=== PATIENT | female | born 1970 | race Caucasian/White ===

== ENCOUNTER 2023-08-17 18:16 | Emergency (ER) | payer OTHER, SELFPAY ==
[2023-08-17 18:19] VITALS: BP 170/102; PULSE 83; RESP 16; TEMP 36.4; O2SAT 100
--- NOTE | 2023-08-17 19:53 | ED.GENADULT ---
HPI - General Adult General Chief complaint: Unspecified Stated complaint: R. breast pain radiates into the back Time Seen by Provider: 08/17/23 19:38 History of Present Illness HPI narrative: Patient is a 52-year-old female who presents to the emergency department this evening complaining of right-sided breast pain extending to her right thoracic back region. Patient states that the pain started approximately 3 days ago and has been persistent. Patient states that it gets so bad that it has been providing her from sleep. She went to [facility] earlier today and had a full workup done including an ultrasound of her right breast, EKG, blood work and a CT of her chest which all returned back negative. Patient admits that she does have breast implants and she has had them for the past 20 years without any issues. No recent trauma to the region. Denies any fevers or chills at home. She is here for pain control and a 2nd opinion. Related Data Allergies Allergy/AdvReac Type Severity Reaction Status Date / Time No Known Allergies Allergy Unknown Verified 08/17/23 18:22 Review of Systems Review of Systems: All systems are reviewed and are negative unless stated otherwise in the HPI. Exam Narrative: General: Alert, awake, afebrile, in no acute distress. HEENT: PERRL, no rhinorrhea, no post nasal drip, oropharynx clear. Cardiovascular: Regular rate and rhythm, no murmurs, rubs or gallops, no peripheral edema. Breast: Tenderness palpation over the right breast, no mass palpated, exam performed with the presence of female nurse earth science technician Grace. Respiratory: Clear to auscultation bilaterally, no tachypnea, no wheezing, no rhonchi, no rubs, no respiratory distress. Abdomen: Soft, nontender, nondistended, no rebound, no guarding, no peritoneal signs. Musculoskeletal: No joint swelling or deformity, normal muscle tone. Skin: No rashes or petechia, no signs of infection. Neurological: Alert and oriented to person, place, and time. Follows all commands. No focal deficits, speech is clear and fluent. Course Vital Signs Vital signs: Vital Signs Temperature 97.6 F 08/17/23 18:19 Pulse Rate 83 08/17/23 18:19 Respiratory Rate 16 08/17/23 18:19 Blood Pressure 170/102 H 08/17/23 18:19 Pulse Oximetry 100 08/17/23 18:19 Temperature 97.6 F 08/17/23 18:19 Pulse Rate 82 08/17/23 20:34 Respiratory Rate 15 08/17/23 20:34 Blood Pressure 162/98 H 08/17/23 20:34 Pulse Oximetry 100 08/17/23 20:34 Medical Decision Making MDM Narrative Medical decision making narrative: The patient was evaluated by myself in the emergency department. History is obtained from patient who is an independent historian and physical exam was performed. External medical records were reviewed at this time. I did inform the patient that since she has had a full workup done at [facility] there is no using repeating everything specifically repeating a CT scan which would be unnecessary radiation and patient is agreeable. Patient was administered oral Raymond 7.5 mg- 325 mg for pain. She was informed that she will be provided a script for Raymond to use as needed for pain to be able to sleep until she can set up an outpatient mammogram. She was also informed that she will be provided with an OBGYN to follow up with. Patient did admit that she has a family history of breast cancer but never got any genetic testing.. Differential diagnosis considerations include breast implant leak versus breast mass. Comorbidities impacting this visit include none. I have evaluated and discussed social determinants of health with the patient that could potentially impact subsequent diagnosis and treatment plans. On repeat assessment of the patient, reevaluation revealed that the patient is doing well and is in no acute distress. Patient symptoms have improved since she arrived to our emergency department. Repeat vital signs were all reviewed and noted to be
[2023-08-17] MEDS: HYDROcodone/acetaminophen (*CRX) 7.5-325 MG TABLET 1 TAB PO (19:57)
[2023-08-17 20:34] VITALS: BP 162/98; PULSE 82; RESP 15; O2SAT 100
== END 2023-08-17 20:40 | disposition home or self-care (01) ==
PROVIDERS: Emergency Provider Emergency Medicine; PCP Family Medicine
DX: N64.4 Mastodynia (principal)
CPT/HCPCS: 99283; A9270

== ENCOUNTER 2024-02-12 11:17 | Outpatient (CLI) | payer OTHER, SELFPAY ==
--- NOTE | ~2024-02-12 | MM_ITS ---
EXAMINATION TYPE: MM scrn jennifer implant BI w tomasz COMPARISON: NONE REASON FOR STUDY: Baseline TECHNIQUE: Bilateral mediolateral oblique and craniocaudal views were obtained digitally with 3-D ma mmogram (digital breast tomosynthesis) with CAD. Computer-aided detection was utilized in evaluation of this examination. Implant displaced views were also performed BREAST PARENCHYMAL COMPOSITION:Not Dense. There are scattered areas of fibroglandular density. FINDINGS: Retropectoral saline implants detected bilaterally. No discrete mass, architectural distortion, significant asymmetry or suspicious microcalcifications. Punctate calcifications within the retroareolar position of the left breast, benign in appearance. Ad ditional punctate calcifications within the right breast, dermal in origin and also benign in appeara nce. IMPRESSION: No mammographic or sonographic evidence to suggest the presence of malignancy BI-RADS CATEGORY: 2: Benign findings. RECOMMENDATION: Yearly mammography is recommended. Reviewed, dictated and finalized at location A. TAX
== END 2024-02-12 11:18 | disposition home or self-care (01) ==
PROVIDERS: PCP Family Medicine; Visit Provider Family Medicine
DX: Z12.31 Encounter for screening mammogram for malignant neoplasm of breast (principal)
CPT/HCPCS: 77063; 77067

== ENCOUNTER 2024-03-10 13:54 | Outpatient (CLI) | payer OTHER, SELFPAY ==
--- NOTE | ~2024-03-10 | CT_ITS ---
CT Scan of the Chest without Contrast: Clinical Indication: Lung cancer screening, nicotine dependence Technique: Contiguous sections were acquired throughout the chest without intravenous contrast. Dose reduction technique was used on this scan by utilizing automated exposure control and iterative recon struction technique. The dose-length product (DLP) was 222.18 mGy-cm. Findings: There is no evidence of any significant mediastinal, hilar or axillary lymphadenopathy. The mediastin al soft tissues appear normal. There is no evidence of pleural or pericardial effusion. The lungs are clear, aside from calcified lingular granuloma. Images through the upper abdomen reveal diffuse hepatic steatosis. Impression: Lung RADS 2: Benign appearance. 12 month follow-up screening CT advised. Reviewed, dictated and finalized at location . D MIXER TENDER Impression: Lung RADS 2: Benign appearance. 12 month follow-up screening CT advised.
== END 2024-03-10 13:55 | disposition home or self-care (01) ==
LOC: ANHIMG 14:05
PROVIDERS: PCP Family Medicine; Visit Provider Nurse Practitioner
DX: Z12.2 Encounter for screening for malignant neoplasm of respiratory organs (principal); Z87.891 Personal history of nicotine dependence
CPT/HCPCS: 71271

== ENCOUNTER 2024-04-09 14:40 | Outpatient (CLI) | payer OTHER, MEDICAID, SELFPAY ==
--- NOTE | ~2024-04-09 | XR_ITS ---
EXAMINATION: XR wrist LT 2V DATE: 04/09/2024 17:07 INDICATION: Left wrist pain. TECHNIQUE: 2 views of left wrist were obtained. COMPARISON: None. FINDINGS: Alignment is normal. No fracture. Joint spaces are normal. IMPRESSION: 1. Normal left wrist. Reviewed, dictated and finalized at location A. HT TEST ENGINEER IMPRESSION: 1. Normal left wrist.
--- NOTE | ~2024-04-09 | MR_ITS ---
EXAMINATION: MR hand RT wo/w con DATE: 04/09/2024 17:04 INDICATION: Right hand pain and swelling. TECHNIQUE: Magnetic resonance imaging (MRI) of the right hand was performed without and with 18 mL Mu ltiHance intravenous contrast. COMPARISON: Right wrist radiographs 04/09/2024 FINDINGS: Alignment is normal. No fracture. There is mild osteoarthritis of triscaphe joint, first ca rpometacarpal joint, and fifth proximal interphalangeal joint. The flexor and extensor tendons are no rmal. There is no tenosynovitis. IMPRESSION: 1. Mild polyarticular osteoarthritis. Reviewed, dictated and finalized at location A. RATION TAILOR
--- NOTE | ~2024-04-09 | XR_ITS ---
EXAMINATION: XR wrist RT 2V DATE: 04/09/2024 17:07 INDICATION: Right wrist pain. TECHNIQUE: 2 views of right wrist were obtained. COMPARISON: None. FINDINGS: Alignment is normal. No fracture. There is mild osteoarthritis of first carpometacarpal uriel nt. IMPRESSION: 1. Mild osteoarthritis of first carpometacarpal joint. Reviewed, dictated and finalized at location A. ERCIAL REAL ESTATE ASSOCIATE
--- NOTE | ~2024-04-09 | MR_ITS ---
EXAMINATION: MR hand LT wo/w con DATE: 04/09/2024 17:04 INDICATION: Left hand pain and swelling. TECHNIQUE: Magnetic resonance imaging (MRI) of the left hand was performed without and with 17 mL Mul tiHance intravenous contrast. COMPARISON: Left wrist radiographs 04/09/2024 FINDINGS: Alignment is normal. No fracture. Joint spaces are normal. The flexor and extensor tendons are normal. There is no synovitis. IMPRESSION: 1. Normal left hand. Reviewed, dictated and finalized at location A. STANT FOOTBALL COACH IMPRESSION: 1. Normal left hand.
--- OUTSIDE RECORDS SUMMARY | 2024-04-09 14:50 | XMS_ITS | Patient Health Record ---
Author Organization [facility] Address [address] [place] [address] Care Team Providers Care Jewelry Bearing Maker Name Role Phone Noelle Walsh Primary Care Provider [phone] Renaldo Tran Unavailable [phone] Mark Caldwell Unavailable [phone] Allergies No Known Allergies Reason For Referral Reason Colonoscopy Diagnosis 1 Encounter for screen ing for malignant neoplasm of colon (Z12.11) Referral Organization [facility], [facility] Referring Provider First Name Mark Referring Provider Last Name Paulette Referring Provider Speciality Internal M edicine Referred Provider Specialty Gastroentero logy General Notes Referral sent to [facility]. Letter to patient. Clinical Notes [facility], [address] [address], ph. [phone], fax: [phone] Referral Priority Routine Referral Appointment Date 02/05/2024 Medications Medication SIG (Take, Route, Frequency, Duration) Notes Start Date End Date Status Famotidine 20 MG 1 tablet at bedtime as needed Orally Once a day for 30 day(s) 06/16/2022 Not-Taking Venlafaxine HCl 75 MG 1 tablet with food Orally Twice a day for 30 days Active Melatonin 5 MG 1 tablet in the evening Orally Once a day for 30 days Active hydrOXYzine HCl 25 MG 1 tablet Orally th ree times a day for 30 days 09/18/2023 Active Nicotine Gum 4mg 4 MG 1 piece up to ever y hour as needed for cravings Mouth/Throat up to 20 pieces per day for 28 days Not-Taking cloNIDine HCl 0.1 MG 1 tablet Orally twi ce a day for 30 days 11/10/2022 Not-Taking OLANZapine 10 MG 1 tablet bedtime Orally Once a day for 30 days 02/05/2024 Active PARoxetine HCl 30 MG 1 tablet in the morning Orally Once a day for 30 days Active QUEtiapine Fumarate 25 MG 1 tablet at be dtime Orally twice a day for 30 days 03/16/2023 Active cloNIDine HCl 0.1 MG 1 tablet Orally twi ce a day for 30 days 11/10/2022 Active Meloxicam 7.5 MG 1 tablet Orally Once a day for 30 days Not-Taking Percocet 7.5-325 MG 1 tablet as needed Orally every 6 hrs Not-Taking methylPREDNISolone 4 MG as directed Orally Not-Taking Gabapentin Not-Takin g HYDROCODONE Not-Taki ng Social History Tobacco Use: Social History Observation Description Date Details (start date - stop date) Current Smoker NA - NA Sex Assigned At : Social History Observation Description Sex Assigned At Female Tobacco Control (Standard) Question Answer Notes Tobacco use: Current every day smoker Additional Findings: Tobacco user Moderate cigar ette smoker (10-19 cigs/day) Problems Problem Type SNOMED Code ICD Code Onset Dates Problem Status W/U Status Risk Notes Problem Tobacco user (099783713) Nicotine dependence, unspecified, uncomplicated (F17.200) Active confirmed Problem Major depression (876197715) Major depression (F32.9) Active confirmed Problem Panic disorder with agoraphobia (66875372) Panic disorder with agoraphobia (F40.01) Active confirmed Problem Rheumatoid arthritis (29855650) Rheumatoid arthritis (M06.9) Active confirmed Problem Acid reflux (029047607) Acid reflux (K21.9) Active confirmed Problem Hyperlipidemia screening (350917000) Screening for hyperlipidemia (Z13.220) Active confirmed Problem Tobacco user (150165033) Nicotine dependence with current use (F17.200) Active confirmed Vital Signs Heart Rate 85 /min 01/01/2024 Respiratory Rate 16 /min 01/01/2024 Oximetry 98 % 01/01/2024 Blood pressure diastolic 86 mm Hg 01/01/2024 Height 67 in 01/01/2024 Blood pressure systolic 146 mm Hg 01/01/2024 Weight 200.4 lbs 01/01/2024 BMI 31.38 kg/m2 01/01/2024 Encounters Encounter Location Date Provider Diagnosis [address] [address] 04/13/2023 Noelle Walsh [address] [address] 05/18/2023 Noelle Walsh Colon cancer screening Z12.[address] [address] 08/08/2023 Arif Habib Major depression F32.[address] [address] 11/27/2023 Mark Caldwell Encounter for screening for malignant neoplasm of colon Z12.11 and Encounter for screening mammogram for breast cancer Z12.[address] [address] 02/05/2024 Mark Caldwell Encounter for screening for malignant neoplasm of colon Z12.11 and Encounter for screening mammogram for breast cancer Z12.[address] [address] 01/01/2024 Arif Habib Nicotine dependence, unspecified, uncomplicated F17.200 and Major depression F32.[address] [address] 05/25/2023 Arif Habib Major depression F32.[address] [address] 07/17/2023 Arif Habib Major depression F32.[address] [address] 09/18/2023 Arif Habib Major depression F32.[address] [address] 11/27/2023 Arif Habib Nicotine dependence, unspecified, uncomplicated F17.200 and Major depression F32.[address] [address] 02/05/2024 Arif Habib Nicotine dependence, unspecified, uncomplicated F17.200 and Major depression F32.[address] [place] [address] 03/11/2024 Arif Habib Nicotine dependence, unspecified, uncomplicated F17.200 and Major depression F32.9 Assessments Encounter Date Diagnosis (ICD Code) Assessment Notes Treatment Notes Treatment Clinical Notes Section Notes 05/18/2023 Colon cancer screening (ICD-10 - Z12.11) 05/25/2023 Major depression (ICD-10 - F32.9) 07/17/2023 Major depression (ICD-10 - F32.9) 08/08/2023 Major depression (ICD-10 - F32.9) 09/18/2023 Major depression (ICD-10 - F32.9) 11/27/2023 Encounter for screening for malignant neoplasm of colon (ICD-10 - Z12.11) Patient Educated with: Fecal Occult Blood Test.pdf (Fecal Occult Blood Test.pdf) 11/27/2023 Encounter for screening mammogram for breast cancer (ICD-10 - Z12.31) Patient Educated with: Mammogram - About this test.pdf (Mammogram - About this test.pdf) Patient Educated with: Learning about Breast Cancer Screenings.pdf (Learning about Breast Cancer Screenings.pdf) 11/27/2023 Nicotine dependence, unspecified, uncomplicated (ICD-10 - F17.200) 02/05/2024 Encounter for screening for malignant neoplasm of colon (ICD-10 - Z12.11) 02/05/2024 Encounter for screening mammogram for breast cancer (ICD-10 - Z12.31) Patient Educated with: Mammogram - About this test.pdf (Mammogram - About this test.pdf) Patient Educated with: Learning about Breast Cancer Screenings.pdf (Learning about Breast Cancer Screenings.pdf) 02/05/2024 Nicotine dependence, unspecified, uncomplicated (ICD-10 - F17.200) 01/01/2024 Nicotine dependence, unspecified, uncomplicated (ICD-10 - F17.200) 03/11/2024 Nicotine dependence, unspecified, uncomplicated (ICD-10 - F17.200) 03/11/2024 Major depression (ICD-10 - F32.9) Continue Paxil 30 mg daily & Effexor 75 mg BID. Pt lately has been taking 75 mg one a day but advised to take BID. Side effects discussed. Increase Zyprexa 5 mg HS as mood stabilizer. Coping skills discussed. 01/01/2024 Major depression (ICD-10 - F32.9) She is still taking Effexor. Increase Paxil 30 mg daily. Side effects discussed. Add Melatonin 5mg HS for sleep Coping skills discussed. 02/05/2024 Major depression (ICD-10 - F32.9) Continue Paxil 30 mg daily & Effexor Side effects discussed. Add Zyprexa 5 mg HS as mood stabilizer. Coping skills discussed. 11/27/2023 Major depression (ICD-10 - F32.9) she already stopped Zoloft few weeks ago on her own and also stopped Trazodone few months ago on her own. She is still taking Effexor. Add Paxil as pt is requesting because it heps her sister. Side effects discussed. 05/25/2023 Other side effects discussed. continue current treatment. Supportive treatment provided 07/17/2023 Other increase Zoloft 200 mg daily, increase Trazodone 100 mg HS. Continue Effexor 75 mg BID. Side effects discussed. Advised to see me in person next time. 09/18/2023 Other Side effects discussed. Coping skills discussed. Add Hydroxyzine 25 mg TID for anxiety. Continue other treatment. Supportive treatment provided Plan Of Treatment Future Test Test Name Order Date Mammogram Breast - Bilateral Screening with ABUS, diagnostic mammogram/ultrasound, and/or biopsy as clinically indicated 12/04/2023 Mammogram Breast - Bilateral Screening with ABUS, diagnostic mammogram/ultrasound, and/or biopsy as clinically indicated 02/12/2024 Insurance Providers Payer Name Payer Address Payer Phone Subscriber Number Group Number Insured Name Patient Relationship to Insured Coverage Start Date Coverage End Date [facility] [address] [place] [phone] [id number] Joseph Michelle Self - patient is the insured 3 3 [facility] Claims Department [address] [place] [address] [phone] [id number] Michelle Ruiz Self - patient is the insured 3 4 [facility] [address] [place] [address] [id number] Michelle Ruiz Self - patient is the insured 4 MEDICAID [address] [facility] [place] [address] [id number] Michelle Ruiz Self - patient is the insured 4 [facility] Claims Department [address] [place] [address] [phone] [id number] Michelle Ruiz Self - patient is the insured 3 4 Medical (General) History Medical History History ICD Code Arthritis Surgical History Surgery Date(Month/Year) Gastric Bypass 2002 Breast Augmentation 2006 Csection 2007 Right shoulder surgery 2009 Hospitalization History Reason Date(Month/Year) [facility] for gall bladder pain August 2022
--- OUTSIDE RECORDS SUMMARY | 2024-04-09 14:50 | XMS_ITS ---
Author Organization [facility] Address [address] [place] [address] Care Team Providers Care Client Experience Manager Name Role Phone Noelle Walsh Primary Care Provider Habib, Arif Unavailable [phone] Allergies No Known Allergies REASON FOR VISIT 1 month f/u [phone], CSSR Interpretation and Follow UP Plan, Dep screening Intervention Medications Medication SIG (Take, Route, Frequency, Duration) Notes Start Date End Date Status methylPREDNISolone 4 MG as directed Orally Not-Taking cloNIDine HCl 0.1 MG 1 tablet Orally twi ce a day for 30 days 11/10/2022 Not-Taking QUEtiapine Fumarate 25 MG 1 tablet at be dtime Orally twice a day for 30 days 03/16/2023 Active cloNIDine HCl 0.1 MG 1 tablet Orally twi ce a day for 30 days 11/10/2022 Active Meloxicam 7.5 MG 1 tablet Orally Once a day for 30 days Not-Taking Gabapentin Not-Takin g HYDROCODONE Not-Taki ng Famotidine 20 MG 1 tablet at bedtime as needed Orally Once a day for 30 day(s) 06/16/2022 Not-Taking OLANZapine 5 MG 1 tablet bedtime Orally Once a day for 30 days 02/05/2024 Active Percocet 7.5-325 MG 1 tablet as needed Orally every 6 hrs Active Melatonin 5 MG 1 tablet in the evening Orally Once a day for 30 days Active PARoxetine HCl 30 MG 1 tablet in the morning Orally Once a day for 30 days Active Venlafaxine HCl 75 MG 1 tablet with food Orally Twice a day for 30 days Active hydrOXYzine HCl 25 MG 1 tablet Orally th ree times a day for 30 days 09/18/2023 Active Nicotine Gum 4mg 4 MG 1 piece up to ever y hour as needed for cravings Mouth/Throat up to 20 pieces per day for 28 days Not-Taking Social History Tobacco Use: Social History Observation Description Date Details (start date - stop date) Current Smoker NA - NA Sex Assigned At : Social History Observation Description Sex Assigned At Female Tobacco Control (Standard) Question Answer Notes Tobacco use: Current smoker How often do you smoke cigarettes? Every day How many cigarettes a day do you smoke? 6-10 Encounters Encounter Location Date Provider Diagnosis [address] [place] [address] 02/05/2024 Arif Habib Nicotine dependence, unspecified, uncomplicated F17.200 and Major depression F32.9 Assessments Encounter Date Diagnosis (ICD Code) Assessment Notes Treatment Notes Treatment Clinical Notes Section Notes 02/05/2024 Nicotine dependence, unspecified, uncomplicated (ICD-10 - F17.200) 02/05/2024 Major depression (ICD-10 - F32.9) Continue Paxil 30 mg daily & Effexor Side effects discussed. Add Zyprexa 5 mg HS as mood stabilizer. Coping skills discussed. Plan Of Treatment Medication Medication Name Sig Start Date Stop Date Notes OLANZapine 5 MG 1 tablet bedtime Ora lly Once a day for 30 days 02/05/2024 Melatonin 5 MG 1 tablet in the even ing Orally Once a day for 30 days PARoxetine HCl 30 MG 1 tablet in the mor emilia Orally Once a day for 30 days Venlafaxine HCl 75 MG 1 tablet with food Orally Twice a day for 30 days Next Appt Details Follow Up: 4 Weeks, Reason: Progress Notes * Michelle RUIZDOB:1970 ( 53 yo F)Acc No.[id number]:02/05/2024 Patient: Michelle HERNÁNDEZ Provider: Alber Tran :1970 A ge:53 Y S ex:Female Date:02/05/2024 Address:[address] [place], [place] [id number] Pcp:Noelle Walsh Subjective: * Chief Complaints: * 1 month f/u [phone] Interpretation and Follow UP PlanDep screening Intervention * HPI: D epression Screening: PHQ-9 L ittle interest or pleasure in doing things N early every day, F eeling down, depressed, or hopeless N early every day, T rouble falling or staying asleep, or sleeping too much S everal days, F eeling tired or having little energy N early every day, P oor appetite or overeating M ore than half the days, F eeling bad about yourself or that you are a failure, or have let yourself or your family down N early every day, T rouble concentrating on things, such as reading the newspaper or watching television N early every day, M oving or speaking so slowly that other people could have noticed; or the opposite, being so fidgety or restless that you have been moving around a lot more than usual?Several days, T houghts that you would be better off or of hurting yourself in some way Not at all, T otal Score 1 9, I nterpretation M oderately Severe Depression.?Intervention D epression Screening Findings P ositive, F ollow-Up for Depression?No Referral necessary, patient involved in behavioral health treatment .. Phone session Pt reports having mood swings. Sister suggested her to atke Zyprexa. Sister takes Zyprexa 30 mg and it did wonders for her as per patient. Pt reports still has anxiety. Stays home all the time. Has anxiety attack. S ister responded to Paxil in past. Pt reports still has depression. Denies wish. Denies SI/HI. Sleep is not good. Appetite is alright. Denies hallucination or delusions. Denies manic or hypo manic symptoms. Denies alcohol or illicit drug use. MSE: Alert, Ox4, mood is alright. She is calm , cooperative, pleasant today. D enies SI/HI. Denies halluciantion or delusions. Denies manic or hypo manic symptoms. Insight & judgement limited. Speech is normal. P reventative Health and Wellness follow-up: Action Plans for Clinical Quality Measures: B reast Cancer Screening: D iscussed need for breast cancer screening. Order placed., C ervical Cancer Screening: D iscussed need for cervical cancer screening. Referred to [facility] for same day scheduling., C olorectal Cancer Screening: D iscussed need for colorectal cancer screening. Referral placed for colonoscopy.. . C SSRS Interpretation and Follow Up Plan: CSSRS Interpretation and Follow Up Plan. CSSRS Interpretation and Follow Up Plan C SSRS Screen documented using SF Y es, M oderate or High risk requires selection of a follow up plan C SSRS No/Low: intervention not needed at this time. S creening: [place] Suicide Severity Rating Scale (LF) D o you want to initiate with S creener form, 1 . Wish to be : Have you wished you were or wished you could go to sleep and not wake up? N o, 2 . Suicidal Thoughts: Have you actually had any thoughts of killing yourself? N o, 6 . Suicide Behaviour: Have you ever done anything,started to do anything, or prepared to end your life? N o, I nterpretation: L ow Risk. * Medical History: * Surgical History: G astric Bypass 2003Breast Augmentation 2006Csection 2007Right shoulder surgery 2008 * Hospitalization/Major Diagno stic Procedure: G [facility] for gall bladder pain August 2022 * Family History: F ather: . M other: . 1 brother(s) , 2 sister(s) - healthy. 1 son(s) - healthy. . Mom had cancer and arthritis. Dad had cancer, high blood pressure and arthritis. Sister of breast cnncer. * Social History: P [facility] Social History: L iving Arrangement L iving Arrangement: I ndependent Living Lives with fiance and son., I s this a supportive environment? Y es. A lcohol Use A lcohol Use Frequency: Never. I llicit Substance Usage I llicit Substance Usage: N o. E mployment Status?Employment Status: U nemployed. T obacco Use: T obacco Control (Standard) T obacco use: C urrent smoker, H ow often do you smoke cigarettes? E very day, H ow many cigarettes a day do you smoke? 6 -10. * Medications: T akingPercocet 7.5-325 MG Tablet 1 tablet as needed Orally every 6 hrs cloNIDine HCl 0.1 MG Tablet 1 tablet Orally twice a day QUEtiapine Fumarate 25 MG Tablet 1 tablet at bedtime Orally twice a day hydrOXYzine HCl 25 MG Tablet 1 tablet Orally three times a day Venlafaxine HCl 75 MG Tablet 1 tablet with food Orally Twice a day PARoxetine HCl 30 MG Tablet 1 tablet in the morning Orally Once a day Melatonin 5 MG Tablet 1 tablet in the evening Orally Once a day Taking Percocet 7.5-325 MG Tablet 1 tablet as needed Orally every 6 hrs Taking cloNIDine HCl 0.1 MG Tablet 1 tablet Orally twice a day Taking QUEtiapine Fumarate 25 MG Tablet 1 tablet at bedtime Orally twice a day Taking hydrOXYzine HCl 25 MG Tablet 1 tablet Orally three times a day Taking Venlafaxine HCl 75 MG Tablet 1 tablet with food Orally Twice a day Taking PARoxetine HCl 30 MG Tablet 1 tablet in the morning Orally Once a day Taking Melatonin 5 MG Tablet 1 tablet in the evening Orally Once a day Not- TakingFamotidine 20 MG Tablet 1 tablet at bedtime as needed Orally Once a day HYDROCODONE Gabapentin methylPREDNISolone 4 MG Tablet Therapy Pack as directed Orally Meloxicam 7.5 MG Tablet 1 tablet Orally Once a day cloNIDine HCl 0.1 MG Tablet 1 tablet Orally twice a day Nicotine Gum 4mg 4 MG Gum 1 piece up to every hour as needed for cravings Mouth/Throat up to 20 pieces per day Not-Taking Famotidine 20 MG Tablet 1 tablet at bedtime as needed Orally Once a day Not-Taking HYDROCODONE Not-Taking Gabapentin Not-Taking methylPREDNISolone 4 MG Tablet Therapy Pack as directed Orally Not- Taking Meloxicam 7.5 MG Tablet 1 tablet Orally Once a day Not-Taking cloNIDine HCl 0.1 MG Tablet 1 tablet Orally twice a day Not-Taking Nicotine Gum 4mg 4 MG Gum 1 piece up to every hour as needed for cravings Mouth/Throat up to 20 pieces per day * Allergies: N .K.D.A.no[Allergies Verified] Objective: * Vitals: I nitials: sw, LMP: pratibha, Pain scale:0. Assessment: * Assessment: 1. N icotine dependence, unspecified, uncomplicated - F17.200 2 . M ajor depression - F32.9 Plan: * Treatment: 2. M ajor depression Refill Venlafaxine HCl Tablet, 75 MG, 1 tablet with food, Orally, Twice a day, 30 days, 60, Refills 0. Clinical Notes: Continue Paxil 30 mg daily & Effexor Side effects discussed. Add Zyprexa 5 mg HS as mood stabilizer. Coping skills discussed. * Recommended Wellness and Pre vention Guidelines: * S kay [place] ast Done N ext Due A ction Taken N ONCOMPLIANT B reast cancer screening - 1 04/07/2023 - N ONCOMPLIANT C ervical cancer screening - 1 04/07/2023 - N ONCOMPLIANT C olorectal cancer screening - 1 04/07/2023 - * Procedure Codes: 9 9406 BEHAV CHNG SMOKING 3-10 MIN * Preventive Medicine: Counseling: S MOKING: P atient counselled on the dangers of tobacco use and urged to quit. . . * Follow Up: 4 Weeks * * FITTER AMMONIA Sign off status: Completed true * Provider: Alber Tran Date: 1 04/07/2023 Generated for Velasquez faust/Jen/Leonard on: 0 04/09/2024 02:50 PM PIPE FITTER AMMONIA History and Physical Notes * HPI (History of Present Illness) Category Sub-Category Detail Notes Category Not es Depression Screening PHQ-9 Little inte rest or pleasure in doing things: Nearly every day Phone session Pt reports having mood swings. Sister suggested her to atke Zyprexa. Sister takes Zyprexa 30 mg and it did wonders for her as per patient. Pt reports still has anxiety. Stays home all the time. Has anxiety attack. Sister responded to Paxil in past. Pt reports still has depression. Denies wish. Denies SI/HI. Sleep is not good. Appetite is alright. Denies hallucination or delusions. Denies manic or hypo manic symptoms. Denies alcohol or illicit drug use. MSE: Alert, Ox4, mood is alright. She is calm , cooperative, pleasant today. Denies SI/HI. Denies halluciantion or delusions. Denies manic or hypo manic symptoms. Insight & judgement limited. Speech is normal. Feeling down, depressed, or hopeless: Ne pancho every day Trouble falling or staying asleep, or sl eeping too much: Several days Feeling tired or having little energy: N early every day Poor appetite or overeating: More than h chevy the days Feeling bad about yourself o r that you are a failure, or have let yourself or your family down: Nearly every day Trouble concentrating on thi ngs, such as reading the newspaper or watching television: Nearly every day Moving or speaking so slowly that other people could have noticed; or the opposite, being so fidgety or restless that you have been moving around a lot more than usual: Several days Thoughts that you would be b shira off or of hurting yourself in some way: Not at all Total Score: 19 Interpretation: Moderately Severe Depres farhan Intervention Depression Screening Findings: P ositive Follow-Up for Depression: No Referral necessary, patient involved in behavioral health treatment . Screening [place] Suicide Sev erity Rating Scale (LF) Do you want to initiate with: Screener form 1. Wish to be : Have you wished you were or wished you could go to sleep and not wake up?: No 2. Suicidal Thoughts: Have you actually had any thoughts of killing yourself?: No 6. Suicide Behavior Question: Have you ever done anything,started to do anything, or prepared to end your life?: No Interpretation:: Low Risk Do Not Use CSSRS Interpretation and Follow Up Plan CSSRS Interpretation and Follow Up Plan CSSRS Screen documented using SF: Yes Moderate or High risk requir es selection of a follow up plan: CSSRS No/Low: intervention not needed at this time Preventative Health and Wellness follow-up Action Plans for Clinical Quality Measures: Breast Cancer Screening:: Discussed need for breast cancer screening. Order placed. . Cervical Cancer Screening:: Discussed need for cervical cancer screening. Referred to [facility] for same day scheduling. Colorectal Cancer Screening: : Discussed need for colorectal cancer screening. Referral placed for colonoscopy.
--- OUTSIDE RECORDS SUMMARY | 2024-04-09 14:51 | XMS_ITS ---
Author Organization [facility] Address [address] [place] [address] Care Team Providers Care Ship Pilot Name Role Phone Noelle Walsh Primary Care Provider Habib, Arif Unavailable [phone] Allergies No Known Allergies REASON FOR VISIT 4 WK FU, Dep screening Intervention, CSSR Interpretation and Follow UP Plan Medications Medication SIG (Take, Route, Frequency, Duration) Notes Start Date End Date Status Famotidine 20 MG 1 tablet at bedtime as needed Orally Once a day for 30 day(s) 06/16/2022 Not-Taking Melatonin 5 MG 1 tablet in the evening Orally Once a day for 30 days Active hydrOXYzine HCl 25 MG 1 tablet Orally th ree times a day for 30 days 09/18/2023 Active PARoxetine HCl 30 MG 1 tablet in the morning Orally Once a day for 30 days Active QUEtiapine Fumarate 25 MG 1 tablet at be dtime Orally twice a day for 30 days 03/16/2023 Active Venlafaxine HCl 75 MG 1 tablet with food Orally Twice a day for 30 days Active Nicotine Gum 4mg 4 MG 1 piece up to ever y hour as needed for cravings Mouth/Throat up to 20 pieces per day for 28 days Not-Taking cloNIDine HCl 0.1 MG 1 tablet Orally twi ce a day for 30 days 11/10/2022 Not-Taking cloNIDine HCl 0.1 MG 1 tablet Orally twi ce a day for 30 days 11/10/2022 Active Percocet 7.5-325 MG 1 tablet as needed Orally every 6 hrs Not-Taking OLANZapine 10 MG 1 tablet bedtime Orally Once a day for 30 days 02/05/2024 Active Meloxicam 7.5 MG 1 tablet Orally Once a day for 30 days Not-Taking methylPREDNISolone 4 MG as directed Orally [...] user Moderate cigar ette smoker (10-19 cigs/day) Encounters Encounter Location Date Provider Diagnosis [address] [address] 03/11/2024 Renaldo Habib Nicotine dependence, unspecified, uncomplicated F17.200 and Major depression F32.9 Assessments Encounter Date Diagnosis (ICD Code) Assessment Notes Treatment Notes Treatment Clinical Notes Section Notes 03/11/2024 Nicotine dependence, unspecified, uncomplicated (ICD-10 - [...] Name Sig Start Date Stop Date Notes PARoxetine HCl 30 MG 1 tablet in the mor emilia Orally Once a day for 30 days Venlafaxine HCl 75 MG 1 tablet with food Orally Twice a day for 30 days OLANZapine 10 MG 1 tablet bedtime Ora lly Once a day for 30 days 02/05/2024 Next Appt Details Follow Up: 4 Weeks, Reason: Progress Notes * Michelle RUIZDOB:1970 ( 53 yo F)Acc No.[id number]:03/11/2024 Patient: Sindy NATACHAMichelle Provider: Alber Tran :1970 A ge:53 Y S ex:Female Date:03/11/2024 Address:[address] [place], [place] [id number] Pcp:Noelle Walsh Subjective: * Chief Complaints: * 4 WK FUDep screening InterventionCSSR Interpretation and Follow UP Plan * HPI: D epression Screening: PHQ-9 L ittle interest or pleasure in doing things N early every day, F eeling down, depressed, or hopeless N early every day, T rouble falling or staying asleep, or sleeping too much N early every day, F eeling tired or having little energy N early every day, P oor appetite or overeating N early every day, F eeling bad about yourself or that you are a failure, or have let yourself or your family down N early every day, T rouble concentrating on things, such as reading the newspaper or watching television?Nearly every day, M oving or speaking so slowly that other people could have noticed; or the opposite, being so fidgety or restless that you have been moving around a lot more than usual N ot at all, T houghts that you would be better off or of hurting yourself in some way N ot at all, T otal Score 2 1, I nterpretation S evere Depression. I ntervention?Depression Screening Findings P ositive, F ollow-Up for Depression N o Referral necessary, patient involved in behavioral health treatment .. Phone session Pt reports still having depression . PHQ-9 is 21 today. Reports having mood swings. She gets irritable easy. She stays home a lot due to cold weather. Taking Nyquil for cold symptoms. Denies wish. Denies SI/HI. Zyprexa is helping her sleep better. Sister suggested her to atke Zyprexa. Sister takes Zyprexa 30 mg and it did wonders for her as per patient. Pt reports still has anxiety. Has anxiety attack. S tino responded to Paxil in past. Appetite is alright. Denies hallucination or delusions. Denies manic or hypo manic symptoms. Denies alcohol or illicit drug use. MSE: Alert, Ox4, mood is alright. She is calm , cooperative. Denies SI/HI. Denies halluciantion or delusions. Denies manic or hypo manic symptoms. Insight & judgement alright. Speech is normal. C SSRS Interpretation and Follow Up Plan: CSSRS Interpretation and Follow Up Plan C SSRS Screen documented using SF Y es, R isk Disposition from SF L ow - No Follow Up Plan Required, F ollow Up Plan N o Follow Up Plan required at this time.. S creening: [place] Suicide Severity Rating Scale (LF) D o [...] N o, I nterpretation: L ow Risk. P reventative Health and Wellness follow-up: Action Plans for Clinical Quality Measures: B reast Cancer Screening: N ot addressed during this visit. See notes for details., C ervical Cancer Screening: N ot addressed during this visit. See notes for details., C olorectal Cancer Screening: Not addressed during this visit. See notes for details.. . * Medical History: * Surgical History: G [...] blood pressure and arthritis. Sister of breast cancer. * Social History: P rimary Social History: L iving Arrangement L iving Arrangement: I ndependent Living Lives with fiance and son., I s this a supportive environment? Y es. A lcohol Use A lcohol Use Frequency: Never. I llicit Substance Usage I llicit Substance Usage: N o. E mployment Status?Employment Status: U nemployed. T obacco Use: T obacco Control (Standard) T obacco use: C urrent every day smoker, A dditional Findings: Tobacco user M oderate cigarette smoker (10-19 cigs/day). * Medications: T akingcloNIDine HCl 0.1 MG Tablet 1 tablet Orally [...] in the evening Orally Once a day OLANZapine 5 MG Tablet 1 tablet bedtime Orally Once a day Taking cloNIDine HCl 0.1 MG Tablet 1 [...] the evening Orally Once a day Taking OLANZapine 5 MG Tablet 1 tablet bedtime Orally Once a day Not-TakingPercocet 7.5-325 MG Tablet 1 tablet as needed Orally every 6 hrs Famotidine 20 MG Tablet 1 tablet at [...] up to 20 pieces per day Not-Taking Percocet 7.5-325 MG Tablet 1 tablet as needed Orally every 6 hrs Not-Taking Famotidine 20 MG Tablet 1 tablet at bedtime as needed Orally Once a day Not-Taking HYDROCODONE Not-Taking Gabapentin Not-Taking methylPREDNISolone 4 MG Tablet Therapy Pack as directed Orally Not-Taking Meloxicam 7.5 MG Tablet 1 tablet Orally Once a day Not-Taking cloNIDine HCl 0.1 MG Tablet 1 tablet Orally twice a day Not-Taking Nicotine Gum 4mg 4 MG Gum 1 piece up to every hour as needed for cravings Mouth/Throat up to 20 pieces per day * Allergies: N .K.D.A.no[Allergies Verified] Objective: * Vitals: I nitials: cv, LMP: pratibha, Pain scale:0. Assessment: * Assessment: [...] Wellness and Pre vention Guidelines: * S tatus A lert L ast Done N ext Due A ction Taken N ONCOMPLIANT A lcohol use screening - 0 03/11/2024 - N ONCOMPLIANT B reast cancer screening - 0 03/11/2024 - N ONCOMPLIANT C ervical cancer screening - 0 03/11/2024 - N ONCOMPLIANT C holesterol control (genl pop) 0 06/19/2022 0 03/11/2024 - N ONCOMPLIANT C olorectal cancer screening - 0 03/11/2024 - N ONCOMPLIANT D epression followup 0 03/11/2024 0 03/11/2024 - N ONCOMPLIANT I nfluenza vaccine (over 50) - 0 03/11/2024 - * Procedure Codes: 9 9406 BEHAV CHNG SMOKING 3-10 MIN * Preventive Medicine: Counseling: S MOKING: P atient counselled on the dangers of tobacco use and urged to quit. . . * Follow Up: 4 Weeks * * IAC NURSE Sign off status: Completed true * Provider: Alber Tran Date: 0 03/11/2024 Generated for Velasquez faust/Jen/Leonard on: 0 04/09/2024 02:50 PM CARDIAC NURSE History and Physical Notes * HPI (History of Present Illness) Category Sub-Category Detail Notes Category Not es Depression Screening PHQ-9 Little inte rest or pleasure in doing things: Nearly every day Phone session Pt reports still having depression . PHQ-9 is 21 today. Reports having mood swings. She gets irritable easy. She stays home a lot due to cold weather. Taking Nyquil for cold symptoms. Denies wish. Denies SI/HI. Zyprexa is helping her sleep better. Sister suggested her to atke Zyprexa. Sister takes Zyprexa 30 mg and it did wonders for her as per patient. Pt reports still has anxiety. Has anxiety attack. Sister responded to Paxil in past. Appetite is alright. Denies hallucination or delusions. Denies manic or hypo manic symptoms. Denies alcohol or illicit drug use. MSE: Alert, Ox4, mood is alright. She is calm , cooperative. Denies SI/HI. Denies halluciantion or delusions. Denies manic or hypo manic symptoms. Insight & judgement alright. Speech is normal. Feeling down, depressed, or hopeless: Ne pancho every day Trouble falling or staying asleep, or sl eeping too much: Nearly every day Feeling tired or having little energy: N early every day Poor appetite or overeating: Nearly ever y day Feeling bad about yourself o r that [...] moving around a lot more than usual: Not at all Thoughts that you would be b shira off or of hurting yourself in some way: Not at all Total Score: 21 Interpretation: Severe Depression Intervention Depression Screening Findings: P ositive Follow-Up for Depression: No Referral necessary, patient involved in behavioral health treatment . Screening [place] Suicide Sev erity Rating Scale (LF) Do [...] end your life?: No Interpretation:: Low Risk Preventative Health and Wellness follow-up Action Plans for Clinical Quality Measures: Breast Cancer Screening:: Not addressed during this visit. See notes for details. . Cervical Cancer Screening:: Not addressed during this visit. See notes for details. Colorectal Cancer Screening: : Not addressed during this visit. See notes for details. CSSRS Interpretation and Follow Up Plan CSSRS Interpretation and Follow Up Plan CSSRS Screen documented using SF: Yes Risk Disposition from SF: Low - No Follo w Up Plan Required Follow Up Plan: No Follow Up Plan requir ed at this time.
--- OUTSIDE RECORDS SUMMARY | 2024-04-09 14:51 | XMS_ITS ---
Author Organization [facility] Address [address] [place] [address] Care Team Providers Care Passenger Barge Master Name Role Phone Noelle Walsh Primary Care Provider [phone] Renaldo Tran Unavailable [phone] Mark Caldwell Unavailable [phone] Reason For Referral Reason Colonoscopy Diagnosis 1 Encounter for screen ing for malignant neoplasm of colon (Z12.11) Referral Organization [facility] Referring Provider First Name Mark Referring Provider Last Name Paulette Referring Provider Speciality Internal M edicine Referred Provider Specialty Gastroentero logy General Notes Referral sent to [facility]. Letter to patient. Clinical Notes [facility], [address] [address], ph. [phone], fax: [phone] Referral Priority Routine Referral Appointment Date 02/05/2024 REASON FOR VISIT UDS Measures Social History Sex Assigned At : Social History Observation Description Sex Assigned At Female Encounters Encounter Location Date Provider Diagnosis [address] [place] [address] 02/05/2024 Mark Caldwell Encounter for screening for malignant neoplasm of colon Z12.11 and Encounter for screening mammogram for breast cancer Z12.31 Assessments Encounter Date Diagnosis (ICD Code) Assessment Notes Treatment Notes Treatment Clinical Notes Section Notes 02/05/2024 Encounter for screening for malignant neoplasm of colon (ICD-10 - Z12.11) 02/05/2024 Encounter for screening mammogram for breast cancer (ICD-10 - Z12.31) Patient Educated with: Mammogram - About this test.pdf (Mammogram - About this test.pdf) Patient Educated with: Learning about Breast Cancer Screenings.pdf (Learning about Breast Cancer Screenings.pdf ) Plan Of Treatment Treatment Notes Assessment Notes Encounter for screening mamm ogram for breast cancer Patient Educated with: Mammogram - About this test.pdf (Mammogram - About this test.pdf) Patient Educated with: Learning about Breast Cancer Screenings.pdf (Learning about Breast Cancer Screenings.pdf) Future Test Test Name Order Date Mammogram Breast - Bilateral Screening with ABUS, diagnostic mammogram/ultrasound, and/or biopsy as clinically indicated 02/12/2024 Referrals Referral Date Details 02/05/2024 02/05/2024, Colonosc opy Progress Notes * Michelle RUIZDOB:1970 ( 53 yo F)Acc No.[id number]:02/05/2024 Patient: Michelle HERNÁNDEZ :1970 A ge:53 Y S ex:Female Address:[address] [place] [address], [id number] Subjective: * Chief Complaints: * U DS Measures * Medical History: * Surgical History: * Hospitalization/Major Diagno stic Procedure: * Medications: Objective: * Vitals: * Physical Examination: Assessment: * Assessment: 1. E ncounter for screening for malignant neoplasm of colon - Z12.11 2 . E ncounter for screening mammogram for breast cancer - Z12.31 Plan: * Treatment: 2. E ncounter for screening mammogram for breast cancer I maging: Mammogram Breast - Bilateral Screening with ABUS, diagnostic mammogram/ultrasound, and/or biopsy as clinically indicated (Ordered for 02/12/2024) Notes: Patient Educated with: Mammogram - About this test.pdf (Mammogram - About this test.pdf) Patient Educated with: Learning about Breast Cancer Screenings.pdf (Learning about Breast Cancer Screenings.pdf) * Procedure Codes: * true * Date: Generated for Printi govind/Jen/eTransmitting on: 0 04/09/2024 02:50 PM SCUBA DIVING INSTRUCTOR Consultation Request Notes Referral Date Referring Provider Referred Provider Not es 02/05/2024 Mark Caldwell , Colonoscopy
[2024-04-09 18:57] LABS: Erythrocyte Sedimentation Rate 16 mm/hr (0-20)
[2024-04-09 19:02] LABS: CRP < 0.5 mg/dL (<1.0); Creatine Kinase 39 U/L (30-135)
[2024-04-09 19:10] LABS: Complement C3 158 mg/dL (88-165)
[2024-04-11 04:43] LABS: SM Antibody <1.0 NEG AI (<1.0 NEG); SM/RNP Antibody <1.0 NEG AI (<1.0 NEG); SS-A <1.0 NEG AI (<1.0 NEG); SS-B <1.0 NEG AI (<1.0 NEG)
[2024-04-11 18:53] LABS: G-6-PD, RBC 18.7 U/g Hgb (7.0-20.5)
== END 2024-04-09 14:41 | disposition home or self-care (01) ==
PROVIDERS: PCP Family Medicine
DX: M25.532 Pain in left wrist (principal); M35.3 Polymyalgia rheumatica; M19.041 Primary osteoarthritis, right hand; M19.031 Primary osteoarthritis, right wrist
CPT/HCPCS: 36415; 73100; 73220; 82550; 82955; 84182; 85652; 86038; 86039; 86140; 86160; 86225; 86235; A9577

== ENCOUNTER 2024-08-29 11:42 | Outpatient (CLI) | payer OTHER, MEDICAID, SELFPAY ==
--- NOTE | ~2024-08-29 | CT_ITS ---
Non-contrast Head CT History: Headache Technique: Axial non-contrast imaging of the brain was performed. Dose reduction technique was used on this scan by utilizing automated exposure control and iterative reconstruction technique. The dose -length product (DLP) was 599.57 mGy-cm. Findings: There is no evidence of intracranial hemorrhage, mass lesion, or acute infarct. Brain par enchyma appears normal. The ventricles and subarachnoid spaces are normal in size. The calvarium ap pears normal. The visualized paranasal sinuses and mastoid air cells are clear. Impression: No significant abnormality seen. Reviewed, dictated and finalized at location . Impression: No significant abnormality seen.
== END 2024-08-29 11:43 | disposition home or self-care (01) ==
LOC: MICIMG 11:43
PROVIDERS: PCP Nurse Practitioner; Visit Provider Nurse Practitioner
DX: G44.209 Tension-type headache, unspecified, not intractable (principal)
CPT/HCPCS: 70450

== ENCOUNTER 2024-11-02 11:57 | Emergency (ER) | payer OTHER, MEDICAID, SELFPAY ==
--- NOTE | ~2024-11-02 | CT_ITS ---
Michelle Rogel EXAMINATION: CT abdomen pelvis w con COMPARISON: None HISTORY: epigastric abd pain; hx pancreatitis TECHNIQUE: Axial images were obtained through the abdomen, pelvis post administration of IV contrast. Oral contrast was also administered. Coronal reconstruction images were obtained from the axial views. CT scan performed using dose optimization techniques including the following automated exposure control; adjustment of mA and/or kV; use of iterative reconstruction technique. Automatic exposure control was used to reduce radiation dose. Permanent radiation dose record is archived to PACS. FINDINGS: CT abdomen: LUNG BASES: The lung bases are clear. The visualized portions of the heart and pericardium are unremarkable. LIVER: Severe hepatic steatosis. The portal vein is patent. There is intrahepatic biliary duct dilatation with dilatation of the CBD measuring 2 cm tapering abruptly distally. SPLEEN: Unremarkable. KIDNEYS: Right Kidney: Unremarkable. No calculi. No hydronephrosis. Left Kidney: Unremarkable. No calculi. No hydronephrosis ADRENAL GLANDS: Unremarkable. PANCREAS: The pancreas is abnormal with dilatation of the pancreatic duct maximally measuring 5 mm with abnormal density in the pancreatic head with a focus of calcification possibly in the distal duct but incompletely characterized. GALLBLADDER/BILIARY: Post cholecystectomy. STOMACH AND ESOPHAGUS: Postsurgical changes in the stomach. BOWEL/MESENTERY: Moderate fecal content. No colitis or diverticulitis. Appendix not identified. Mesentery otherwise normal. ADENOPATHY/RETROPERITONEUM: No lymphadenopathy. AORTA/VASCULATURE: Partially imaged bilateral breast implants. FREE FLUID OR FREE AIR: No free fluid.. CT pelvis: SOLID ORGANS/REPRODUCTIVE: Post hysterectomy. No adnexal mass. BLADDER: Within normal limits. OSSEOUS STRUCTURES: No acute osseous abnormality.No suspicious lesions. OVERLYING SOFT TISSUES: Postsurgical changes abdominal wall.There is thickening of the skin overlying the pelvis, correlate for underlying cellulitis. IMPRESSION: Pancreatic head mass suspected. Contrast-enhanced MRI is recommended Reviewed, dictated and finalized at location A.
[2024-11-02 12:03] VITALS: BP 154/86; PULSE 105; RESP 16; TEMP 36.4; O2SAT 96
--- NOTE | 2024-11-02 12:07 | ECG_ITS ---
Test Date: 2024-11-02 12:10:54 Measurements Intervals Dairy Rate: 94 P: 47 NJ: 168 QRS: -24 QRSD: 85 T: 34 QT: 356 QTc: 447 Interpretive Statements SINUS RHYTHM MINIMAL VOLTAGE CRITERIA FOR LVH, CONSIDER NORMAL VARIANT [MEETS CRITERIA IN ONE OF: R(aVL), S(V1), R(V5), R(V5/V6)+S(V1)] ANTEROSEPTAL MYOCARDIAL INFARCTION , OF INDETERMINATE AGE [40+ ms Q WAVE IN V1-V4] ABNORMAL ECG No previous ECG available for comparison Electronically Signed On 11-02-2024 12:34:30 CDT by Kyle Duff M.D.
[2024-11-02 12:27] LABS: BEDSIDEPREGUCG Negative (Negative)
[2024-11-02 12:33] LABS: Hematocrit 44.1 % (37.0-47.0); Hemoglobin 14.2 g/dL (12.0-15.0); Immature Granulocyte Percent A 0.3 % (0-0.5); Lymphocytes Absolute Auto 2.30 K/mm3 (0.9-3.2); Mean Corpuscular HGB Conc 32.2 g/dl (32-36); Mean Corpuscular Hemoglobin 30.4 pg (26-34); Mean Corpuscular Volume 94.4 fl (80-100); Nucleated Red Blood Cells Absolute Auto 0.000 K/mm3 (0.0-0.012); Nucleated Red Blood Cells Perc 0.0 % (0.0-0.2); Platelet Count Result 390 k/mm3 (150-375); Red Blood Count 4.67 M/mm3 (4.2-5.4); White Blood Count 12.9 K/mm3 (4.5-10.0)
[2024-11-02 12:38] LABS: Add Urine Microscopic? YES; Appearance Urine Clear (Clear); Glucose Urine UA Negative (Negative); Leukocyte Esterase Ur Trace LEU/UL (Negative); Nitrate Urine Negative (Negative); Non Pathogenic Casts 0-2; Specific Grav Ur 1.032 (1.001-1.035)
[2024-11-02 12:45] LABS: Alanine Aminotransferase 25 U/L (6-35); Albumin Level 3.8 g/dL (3.5-5.1); Alkaline Phosphatase 118 U/L (38-126); Anion Gap 8 mmol/L (4-12); Aspartate Amino Transferase 28 U/L (14-36); Bilirubin,Total 0.8 mg/dL (0.2-1.3); Blood Urea Nitrogen 16 mg/dL (7-17); Calcium 9.1 mg/dL (8.4-10.2); Carbon Dioxide 22 mmol/L (22-30); Chloride 107 mmol/L (98-107); Estimated CRCL calculation 105 ml/min; Estimated Glomerular Filt Rate > 60; Glucose 120 mg/dL (65-110); Lipase 420 U/L (23-300); Potassium 3.7 mmol/L (3.4-5.0); Sodium 137 mmol/L (137-145); Total Protein 7.5 g/dL (6.3-8.2)
--- NOTE | 2024-11-02 13:15 | ED.ABDPAIN ---
HPI - Abdominal Pain General Chief Complaint: Abdominal Pain Stated Complaint: abd pain/N/V-Hx Pancreatitis Time Seen by Provider: 11/02/24 12:50 Source: patient and family () Mode of arrival: ambulatory Limitations: no limitations History of Present Illness HPI narrative: Patient presents right epigastric abdominal pain, nausea, and vomiting. Pain radiates to her back wrapping around her left upper quadrant, like a half belt. States she has a history of pancreatitis and this feels the same. Describes burning pain. LBM was the day before yesterday. Denies chest pain or shortness of breath. WINNIE was yesterday. No sick contacts. No diarrhea. States she is a former heavy drinker but now only has it 1x/year. Status post hysterectomy and gastric bypass. Does not know if she has had a cholecystectomy. Denies dysuria, urgency, frequency, or hematuria. No fevers. Also asking about a bump she feels on the right lateral aspect of her tongue but believes it might have just been some mild trauma while brushing her teeth. Related Data Allergies Allergy/AdvReac Type Severity Reaction Status Date / Time No Known Allergies Allergy Unknown Verified 11/02/24 11:58 [facility] Past Medical History Medical History History of pancreatitis Surgical History Surgical History History of cholecystectomy Based on postsurgical changes on CT 11/02 (patient was not certain about history) H/O gastric bypass History of hysterectomy Social History Social History (Updated 11/03/24 @ 23:15 by Josselin Moss MD) Social History: Alcohol intake: former Alcohol use details: previously heavy consumption; now 1x/year Substance use type: marijuana Living arrangements: with family Additional living arrangements comments: Exam Narrative: GENERAL: Well-appearing, well-nourished, and in no acute distress. HEAD: Normocephalic, atraumatic. EYES: Non injected, non icteric ENT: Nares clear, no rhinorrhea or epistaxis. Gross auditory acuity intact. Moist mucous membranes. Essentially Linear raised portion of right lateral tongue, no active bleeding. Not firm and no palpable masses. NECK: Supple. No meningismus. CHEST: Speaking in full sentences. No respiratory distress. HEART: Tachycardic rate and rhythm. . ABDOMEN: Soft, nondistended. No tenderness to palpation throughout. No rigidity or guarding. Not peritoneal EXTREMITIES: Normal range of motion. No lower extremity edema. SKIN: Warm, dry, no rash. NEURO: No focal deficits. Alert and oriented. Answering questions. Following commands. Normal speech without aphasia or dysarthria. Tongue protrudes mildline without deviation. No fasciculations. PSYCH: Congruent mood and affect. Course Vital Signs Vital signs: Vital Signs Temperature 97.6 F 11/02/24 12:03 Pulse Rate 105 H 11/02/24 12:03 Respiratory Rate 16 11/02/24 12:03 Blood Pressure 154/86 H 11/02/24 12:03 Pulse Oximetry 96 11/02/24 12:03 Oxygen Delivery Room Air 11/02/24 12:03 Temperature 97.6 F 11/02/24 12:03 Pulse Rate 72 11/02/24 17:47 Respiratory Rate 16 11/02/24 17:47 Blood Pressure 116/72 11/02/24 17:47 Pulse Oximetry 99 11/02/24 17:47 Oxygen Delivery Room Air 11/02/24 12:03 MDM - Abdominal Pain MDM Narrative Medical decision making narrative: Patient presents with epigastric abdominal pain. History of pancreatitis and states this feels similar. In the emergency department she is afebrile with vital signs notable for mild hypertension and mild tachycardia. Lipase mildly elevated. Not 3x the upper limit of normal to suggest pancreatitis and benign abdominal exam but will obtain CT imaging nevertheless. Leukocytosis and mild thrombocytosis. Urinalysis with mild ketones but otherwise without signs of infection. We discussed the findings her CT scan when patient is reassessed at approximately 2:55 p.m. she states she has not vomited since being in the emergency department and her nausea is improved but hte pain persists. Will give 1 dose Dilaudid. She does endorse using marijuana daily/near daily, from the dispensary. Patient complaining of nausea per nurse at approximately 3:30 p.m.. Haldol and diphenhydramine ordered. Patient is reassessed. Patient on multiple times endorses concerned that when she gets home she will be unable to swallow but what she means by this is she is concerned that her nausea and vomiting will prohibit her from being able to swallow/keep PO down. However, she successfully PO challenges. I have discussed with the patient the need to follow-up as noted on the discharge instructions, or return to the Emergency Department immediately if the pain worsens, develops fever, persistent and uncontrolled vomiting, or for any new symptoms or concerns. Provided Rx for ODT Zofran. Otherwise stable for DC. Vital signs within normal limits. Differential Diagnosis Differential diagnosis: Likely abdominal pain, constipation, diverticulitis, endometriosis, gastroenteritis, pancreatitis and other (cannabinoid hyperemesis syndrome; gastritis) Lab Data Attestation: I reviewed the patient's lab results. Lab results narrative: CMP normal 11/02/24 12:17 11/02/24 12:17 Labs: Lab Results 11/02/24 11/02/24 11/02/24 Range/Units 12:17 12:22 12:25 WBC 12.9 H (4.5-10.0) K/mm3 RBC 4.67 (4.2-5.4) M/mm3 Hgb 14.2 (12.0-15.0) g/dL Hct 44.1 (37.0-47.0) % MCV 94.4 (80-100) fl MCH 30.4 (26-34) pg MCHC 32.2 (32-36) g/dl RDW 14.9 H (11.5-14.5) % Plt Count 390 H (150-375) k/mm3 MPV 10.6 H (7.4-10.4) fl Immature Gran % (Auto) 0.3 (0-0.5) % Neut % (Auto) 70.9 (45.5-73.1) % Lymph % (Auto) 17.8 L (18.3-44.2) % Kinney % (Auto) 6.0 (2.6-8.5) % Eos % (Auto) 4.6 H (0-4.4) % Baso % (Auto) 0.4 (0.2-1.2) % Lymph # (Auto) 2.30 (0.9-3.2) K/mm3 Kinney # (Auto) 0.8 H (0.1-0.6) K/mm3 Eos # (Auto) 0.6 H (0-0.3) K/mm3 Baso # (Auto) 0.1 (0.0-0.1) K/mm3 Abs Immat Gran (auto) 0.04 H (0.00-0.031) K/mm3 Absolute Neuts (auto) 9.2 H (1.3-6.7) K/mm3 Absolute Nucleated RBC 0.000 (0.0-0.012) K/mm3 Nucleated RBC % 0.0 (0.0-0.2) % Sodium 137 (137-145) mmol/L Potassium 3.7 (3.4-5.0) mmol/L Chloride 107 (98-107) mmol/L Carbon Dioxide 22 (22-30) mmol/L Anion Gap 8 (4-12) mmol/L BUN 16 (7-17) mg/dL Creatinine 0.59 L (0.7-1.0) mg/dL Estim Creat Clear Calc 105 ml/min Estimated GFR > 60 (59 - ) Glucose 120 H (65-110) mg/dL Calcium 9.1 (8.4-10.2) mg/dL Total Bilirubin 0.8 (0.2-1.3) mg/dL AST 28 (14-36) U/L ALT 25 (6-35) U/L Alkaline Phosphatase 118 (38-126) U/L Troponin I < 0.012 (0.000-0.034) ng/mL Total Protein 7.5 (6.3-8.2) g/dL Albumin 3.8 (3.5-5.1) g/dL Lipase 420 H (23-300) U/L Urine Color Yellow (Yellow) Urine Appearance Clear (Clear) Urine pH 5.5 (5.0-9.0) Ur Specific Gustine 1.032 (1.001-1.035) Urine Protein Trace (Negative) mg/dL Urine Glucose (UA) Negative (Negative) mg/dL Urine Ketones 1+ H (Negative) mg/dL Ur Blood (Man) Negative (Negative) Urine Nitrate Negative (Negative) Urine Bilirubin Negative (Negative) Urine Urobilinogen 2.0 H (<2.0) mg/dL Leukocyte Esterase Rfl Trace H (Negative) MADDIE/UL Urine RBC 0-2 (0-2) /hpf Urine WBC 0-5 (0-3) /hpf Ur Squamous Epith Cells Occasional (Few) /hpf Urine Bacteria Rare /hpf Urine Casts 0-2 POC Urine HCG, Qual Negative (Negative) Influenza A (RT-PCR) (Negative) Influenza B (RT-PCR) (Negative) SARS-CoV-2 RNA (RT-PCR) (Negative) 11/02/24 Range/Units 13:29 WBC (4.5-10.0) K/mm3 RBC (4.2-5.4) M/mm3 Hgb (12.0-15.0) g/dL Hct (37.0-47.0) % MCV (80-100) fl MCH (26-34) pg MCHC (32-36) g/dl RDW (11.5-14.5) % Plt Count (150-375) k/mm3 MPV (7.4-10.4) fl Immature Gran % (Auto) (0-0.5) % Neut % (Auto) (45.5-73.1) % Lymph % (Auto) (18.3-44.2) % Kinney % (Auto) (2.6-8.5) % Eos % (Auto) (0-4.4) % Baso % (Auto) (0.2-1.2) % Lymph # (Auto) (0.9-3.2) K/mm3 Kinney # (Auto) (0.1-0.6) K/mm3 Eos # (Auto) (0-0.3) K/mm3 Baso # (Auto) (0.0-0.1) K/mm3 Abs Immat Gran (auto) (0.00-0.031) K/mm3 Absolute Neuts (auto) (1.3-6.7) K/mm3 Absolute Nucleated RBC (0.0-0.012) K/mm3 Nucleated RBC % (0.0-0.2) % Sodium (137-145) mmol/L Potassium (3.4-5.0) mmol/L Chloride (98-107) mmol/L Carbon Dioxide (22-30) mmol/L Anion Gap (4-12) mmol/L BUN (7-17) mg/dL Creatinine (0.7-1.0) mg/dL Estim Creat Clear Calc ml/min Estimated GFR (59 - ) Glucose (65-110) mg/dL Calcium (8.4-10.2) mg/dL Total Bilirubin (0.2-1.3) mg/dL AST (14-36) U/L ALT (6-35) U/L Alkaline Phosphatase (38-126) U/L Troponin I (0.000-0.034) ng/mL Total Protein (6.3-8.2) g/dL Albumin (3.5-5.1) g/dL Lipase (23-300) U/L Urine Color (Yellow) Urine Appearance (Clear) Urine pH (5.0-9.0) Ur Specific Gustine (1.001-1.035) Urine Protein (Negative) mg/dL Urine Glucose (UA) (Negative) mg/dL Urine Ketones (Negative) mg/dL Ur Blood (Man) (Negative) Urine Nitrate (Negative) Urine Bilirubin (Negative) Urine Urobilinogen (<2.0) mg/dL Leukocyte Esterase Rfl (Negative) MADDIE/UL Urine RBC (0-2) /hpf Urine WBC (0-3) /hpf Ur Squamous Epith Cells (Few) /hpf Urine Bacteria /hpf Urine Casts POC Urine HCG, Qual (Negative) Influenza A (RT-PCR) Negative (Negative) Influenza B (RT-PCR) Negative (Negative) SARS-CoV-2 RNA (RT-PCR) Negative (Negative) Imaging Data Radiologist's impression: ITS Impressions Abdomen/Pelvis CT 11/02/24 14:27 IMPRESSION: Pancreatic head mass suspected. Contrast-enhanced MRI is recommended ECG Data EKG #1: Attestation: I personally reviewed and interpreted this ECG as follows: ECG completion date: 11/02/24 ECG completion time: 12:10 Interpretation: Normal sinus rhythm at a rate of 94 beats per minute. MN interval 168. QRS 85. QT/QTC 356/447. R-wave progression across the precordial leads. No T-wave inversions. Discharge Plan Discharge Clinical Impression: Epigastric abdominal pain, Leukocytosis, Mass of head of pancreas Instructions: Antibiotic Form, Epigastric Pain (ED) Additional Instructions: The oral disintegrating tablets (ODT) of Zofran/ondansetron can help suppress nausea and vomiting. They dissolve under your tongue or in your cheek so you don't have to swallow but they work on your stomach by entering your blood stream. This will help allow you to rest and maintain your hydration and take your other medications as prescribed. As we discussed, Pancreatic head mass suspected. Contrast-enhanced MRI is recommended. Your PCP can help arrange this. Please follow up with them by calling their office tomorrow. Return to the emergency department with any new or worsening symptoms; example develops fever, persistent and uncontrolled vomiting, etc. Patient Language: Bahraini Prescriptions: New ondansetron 4 mg tablet,disintegrating 4 mg PO Q8H PRN (Reason: nausea and vomiting) Qty: 10 0RF No Action hydrocodone-acetaminophen 5-325 mg tablet 1 tablet PO Q8H PRN (Reason: pain) Qty: 10 0RF Follow-up/Referrals: Inés,Michelle Peralta APRN [Primary Care Provider, Unknown] Stand Alone Forms: Work/School Release IP Time of Disposition: 17:32
[2024-11-02 13:52] LABS: Troponin I < 0.012 ng/mL (0.000-0.034)
[2024-11-02] MEDS: SODIUM CHLORIDE 0.9% IV 1,000 ML 999 ML IV CONT (13:55)
[2024-11-02] MEDS: FAMOTIDINE 20 MG/2 ML VIAL IV PUSH (13:56)
[2024-11-02] MEDS: ONDANSETRON INJ 4 MG/2 ML VIAL IV PUSH (13:56)
[2024-11-02] MEDS: MORPHINE SULFATE (*CRX) 4 MG/ML INJ IV PUSH (13:56)
--- NOTE | 2024-11-02 14:02 | PC.NURSE ---
Pt. to CT.
[2024-11-02 14:10] LABS: Influenza A QL RT-PCR Negative (Negative); Influenza B QL RT-PCR Negative (Negative); SARS-CoV-2 RNA PCR Negative (Negative)
[2024-11-02] MEDS: HYDROmorphone HCL INJ (*CRX) 1 MG/ML SYR 0.5 MG IV PUSH (15:28)
--- NOTE | 2024-11-02 15:32 | PC.NURSE ---
Pt. c/o continued nausea. Dr. Moss notified.
[2024-11-02] MEDS: HALOPERIDOL LACTATE 5 MG/ML VIAL 2.5 MG IV PUSH (15:45)
[2024-11-02 16:57] VITALS: BP 118/65; PULSE 93; RESP 16; O2SAT 99
[2024-11-02] MEDS: METOCLOPRAMIDE HCL INJ 10 MG/2 ML VIAL IV PUSH (16:57)
--- NOTE | 2024-11-02 17:02 | PC.NURSE ---
Pt. requesting an update. Dr. Moss notified.
[2024-11-02] MEDS: ACETAMINOPHEN 500 MG TABLET 1000 MG PO (17:23)
[2024-11-02] MEDS: KETOROLAC 15 MG/ML VIAL (*BKC) IV PUSH (17:24)
[2024-11-02 17:47] VITALS: BP 116/72; PULSE 72; RESP 16; O2SAT 99
== END 2024-11-02 17:49 | disposition home or self-care (01) ==
PROVIDERS: Emergency Medicine; Emergency Provider Student in an Organized Health Care Education/Training Program; PCP Nurse Practitioner
DX: R10.13 Epigastric pain (principal); D72.829 Elevated white blood cell count, unspecified; K86.9 Disease of pancreas, unspecified; Z20.822 Contact with and (suspected) exposure to COVID-19
CPT/HCPCS: 36415; 74177; 80053; 81001; 81025; 83690; 84484; 85025; 87636; 93005; 96361; 96374; 96375; 99284; A9270; J1171; J1200; J1630; J1885; J2270; J2405; J2765; J7030; Q9967

== ENCOUNTER 2024-11-07 17:31 | Inpatient (IN) | payer OTHER, MEDICAID, SELFPAY ==
--- NOTE | ~2024-11-07 | CT_ITS ---
EXAMINATION: CT abdomen pelvis w con DATE: 11/07/2024 20:28 INDICATION: Epigastric abdominal pain. Nausea and vomiting. TECHNIQUE: Computed tomography (CT) of the abdomen and pelvis was performed with 100 mL Omnipaque 350 intravenous contrast. Automated exposure control and iterative reconstruction technique were employed. The dose-length product was 1015.57 mGy-cm. COMPARISON: CT abdomen and pelvis 11/02/2024 FINDINGS: The visualized portions of the lung bases demonstrate mild atelectasis. No pleural effusion. The heart size is normal. No pericardial effusion. Breast implants are noted. There is diffuse hepatic steatosis. There is mild intrahepatic biliary duct dilatation. There are changes of cholecystecto my. The common duct is dilated to 13 mm, likely not clinically significant given the normal liver function tests. There is a calcification in the head of the pancreas, consistent with chronic pancreatitis. The pancreatic duct is mildly dilated. There is fat stranding around the pancreas, consistent with acute interstitial pancreatitis. There are changes of gastric bypass procedure. The spleen, adrenal glands, and kidneys are normal. The appendix is dilated to 12 mm without change. No surrounding fat stranding to suggest appendicitis. There are no pathologically enlarged lymph nodes. There is no free intraperitoneal fluid. There is mild thoracic and lumbar spondylosis. IMPRESSION: 1. Acute interstitial pancreatitis superimposed on chronic pancreatitis. 2. Diffuse hepatic steatosis. Reviewed, dictated and finalized at location E.
[2024-11-07 17:40] VITALS: BP 147/80; PULSE 88; RESP 16; TEMP 36.7; O2SAT 100
[2024-11-07 18:45] VITALS: BP 158/85; PULSE 80; RESP 19; O2SAT 98
[2024-11-07 18:58] LABS: Hematocrit 43.2 % (37.0-47.0); Hemoglobin 13.9 g/dL (12.0-15.0); Immature Granulocyte Percent A 0.3 % (0-0.5); Lymphocytes Absolute Auto 2.34 K/mm3 (0.9-3.2); Mean Corpuscular HGB Conc 32.2 g/dl (32-36); Mean Corpuscular Hemoglobin 30.2 pg (26-34); Mean Corpuscular Volume 93.9 fl (80-100); Nucleated Red Blood Cells Absolute Auto 0.000 K/mm3 (0.0-0.012); Nucleated Red Blood Cells Perc 0.0 % (0.0-0.2); Platelet Count Result 393 k/mm3 (150-375); Red Blood Count 4.60 M/mm3 (4.2-5.4); White Blood Count 8.9 K/mm3 (4.5-10.0)
[2024-11-07 19:00] VITALS: BP 121/86; PULSE 78; RESP 13; O2SAT 99
[2024-11-07 19:09] LABS: Alanine Aminotransferase 17 U/L (6-35); Albumin Level 3.8 g/dL (3.5-5.1); Alkaline Phosphatase 111 U/L (38-126); Anion Gap 5 mmol/L (4-12); Aspartate Amino Transferase 22 U/L (14-36); Bilirubin,Total 0.5 mg/dL (0.2-1.3); Blood Urea Nitrogen 17 mg/dL (7-17); Calcium 9.6 mg/dL (8.4-10.2); Carbon Dioxide 28 mmol/L (22-30); Chloride 107 mmol/L (98-107); Estimated CRCL calculation 96 ml/min; Estimated Glomerular Filt Rate > 60; Glucose 103 mg/dL (65-110); Lipase 128 U/L (23-300); Potassium 3.8 mmol/L (3.4-5.0); Sodium 140 mmol/L (137-145); Total Protein 7.8 g/dL (6.3-8.2)
--- NOTE | 2024-11-07 19:31 | ED.ABDPAIN ---
HPI - Abdominal Pain General Chief Complaint: Abdominal Pain <MIC Nicholson Last Filed: 11/08/24 01:01> Stated Complaint: pancreatitis <MIC Nicholson Last Filed: 11/08/24 01:01> Time Seen by Provider: 11/07/24 17:57 <MIC Nicholson Last Filed: 11/08/24 01:01> Source: patient <MIC Nicholson Last Filed: 11/08/24 01:01> Mode of arrival: ambulatory <MIC Nicholson Last Filed: 11/08/24 01:01> Limitations: no limitations <MIC Nicholson Last Filed: 11/08/24 01:01> History of Present Illness HPI narrative: Patient is a 53-year-old female who presents the ED with report of abdominal pain. Patient reports having pain throughout her epigastric abdominal region, radiating through to her back for the past 4-5 days. Was seen in the ED here on 11/[address] scan of the abdomen showed possible pancreatic mass at that time. Patient has history of pancreatitis and states symptoms feel similar. She reports persistent pain, nausea, vomiting since her ED visit. Was prescribed Zofran for home, but denies improvement. Has been unable to keep down food or drink. Denies fevers, chest pain, shortness breath, diarrhea, constipation. <MIC Nicholson Last Filed: 11/08/24 01:01> Related Data Home Medications: Home Medications ?Medication ?Instructions ?Recorded ?Confirmed ?Last Taken ?Type albuterol sulfate 90 mcg/actuation 1 inh inhalation Q4-6H PRN 11/08/24 11/08/24 Unknown History aerosol inhaler shortness of breath or wheezing amlodipine 5 mg tablet 5 mg PO DAILY 11/08/24 11/08/24 Unknown History cyclobenzaprine 10 mg tablet 10 mg PO HS PRN muscle spasm 11/08/24 11/08/24 Unknown History gabapentin 800 mg tablet 800 mg PO QID 11/08/24 11/08/24 Unknown History hydroxyzine HCl 25 mg tablet 25 mg PO HS PRN itching 11/08/24 11/08/24 Unknown History lisinopril 40 mg tablet 40 mg PO DAILY 11/08/24 11/08/24 Unknown History melatonin 5 mg tablet 5 mg PO HS 11/08/24 11/08/24 Unknown History olanzapine 20 mg tablet 10 mg PO BID 11/08/24 11/08/24 Unknown History oxycodone-acetaminophen 7.5 mg-325 1 tablet PO QID 11/08/24 11/08/24 Unknown History mg tablet paroxetine HCl 20 mg tablet 20 mg PO DAILY 11/08/24 11/08/24 Unknown History varenicline tartrate 1 mg tablet 1 mg PO DAILY 11/08/24 11/08/24 Unknown History venlafaxine 75 mg tablet 75 mg PO DAILY 11/08/24 11/08/24 Unknown History <Lenka Flores PA-C - Last Filed: 11/08/24 01:01> Allergies/Adverse Reactions: Allergies Allergy/AdvReac Type Severity Reaction Status Date / Time No Known Allergies Allergy Unknown Verified 11/08/24 02:19 <Lenka Flores PA-C - Last Filed: 11/08/24 01:01> Review of Systems Review of Systems: All systems reviewed & are unremarkable except as noted in HPI. <Lenka Flores PA-C - Last Filed: 11/08/24 01:01> All systems reviewed & are unremarkable except as noted in HPI and below <Lenka Flores PA-C - Last Filed: 11/08/24 01:01> PENDING SALE TO [facility] Past Medical History Medical History: Medical History History of pancreatitis <Lenka Flores PA-C - Last Filed: 11/08/24 01:01> Surgical History Surgical History: Surgical History History of cholecystectomy Based on postsurgical changes on CT 11/02 (patient was not certain about history) H/O gastric bypass History of hysterectomy <Lenka Flores PA-C - Last Filed: 11/08/24 01:01> Family History Family History: Family History (Updated 11/08/24 @ 02:52 by Ruben Collazo RN) Father Leukemia Mother Pancreatic cancer <Lenka Flores PA-C - Last Filed: 11/08/24 01:01> Social History Social History: Social History Social History: Smoking packs per day: 0.5 Smoking cigarettes per day: 10.0 Smoking status: Current every day smoker Tobacco type: cigarettes Alcohol intake: former Drinks per week: 35 Alcohol use details: previously heavy consumption; now 1x/year Substance use: never Substance use type: does not use Lack of Transportation: No Lack of Food: Never True Current Housing: I Have Housing Concerned About Future Housing: No Difficulty Paying Gas/Electric Bills: No Difficulty Paying for Meds: No Currently Unemployed: No Education: High School Diploma/GED Difficulty w/ Childcare or Family Care: No Living arrangements: with family Additional living arrangements comments: Spiritual care concerns: No <Lenka Flores PA-C - Last Filed: 11/08/24 01:01> Exam Narrative: GENERAL: Mildly uncomfortable appearing, obese with BMI of 30.4, non-toxic, in no acute distress. HEAD: Normocephalic, atraumatic. RESPIRATORY: Airway patent, respirations nonlabored. Clear to auscultation bilaterally, no rales, rhonchi, wheezing. CARDIOVASCULAR: Regular rate and rhythm without murmurs, rubs, or gallops. ABDOMINAL: Soft, mild diffuse tenderness some focal tenderness in epigastric region, nondistended. Normoactive BS. MUSCULOSKELETAL: Moves all extremities. No gross deformities. SKIN: Warm, dry, normal color. NEURO: A&O X3. Speech clear. Cranial nerves II-XII grossly intact. Steady gait. No ataxic movements. PSYCHIATRIC: Appropriate mood and affect. Normal interaction. <Lenka Flores PA-C - Last Filed: 11/08/24 01:01> Course MULTIGRAPH OPERATOR/PA Physician Supervision This visit was performed by both a physician and an APC; I performed all aspects of the medical decision making component of this evaluation as documented. <Carola Millard MD - Last Filed: 11/08/24 03:54> Vital Signs Vital signs: Vital Signs Temperature 98.0 F 11/07/24 17:40 Pulse Rate 88 11/07/24 17:40 Respiratory Rate 16 11/07/24 17:40 Blood Pressure 147/80 H 11/07/24 17:40 Pulse Oximetry 100 11/07/24 17:40 Oxygen Delivery Room Air 11/07/24 17:40 Temperature 97.8 F 11/08/24 01:49 Pulse Rate 80 11/08/24 01:49 Respiratory Rate 18 11/08/24 01:49 Blood Pressure 152/84 H 11/08/24 01:49 Pulse Oximetry 99 11/08/24 01:49 Oxygen Delivery Room Air 11/08/24 03:14 <Lenka Flores PA-C - Last Filed: 11/08/24 01:01> Vital Signs Temperature 98.0 F 11/07/24 17:40 Pulse Rate 88 11/07/24 17:40 Respiratory Rate 16 11/07/24 17:40 Blood Pressure 147/80 H 11/07/24 17:40 Pulse Oximetry 100 11/07/24 17:40 Oxygen Delivery Room Air 11/07/24 17:40 Temperature 97.8 F 11/08/24 01:49 Pulse Rate 80 11/08/24 01:49 Respiratory Rate 18 11/08/24 01:49 Blood Pressure 152/84 H 11/08/24 01:49 Pulse Oximetry 99 11/08/24 01:49 Oxygen Delivery Room Air 11/08/24 03:14 <Carola Millard MD - Last Filed: 11/08/24 03:54> MDM - Abdominal Pain MDM Narrative Medical decision making narrative: Patient presented to ED with epigastric abdominal pain, nausea, vomiting, history of pancreatitis. Recently seen in the ED for similar symptoms, reports ongoing symptoms. Vital signs are stable upon arrival. Patient is afebrile. Mildly uncomfortable appearing. No leukocytosis or anemia. CMP is unremarkable. Stable electrolytes. Stable kidney function. Normal LFTs and lipase. Lipase was mildly elevated to 420 on last ED visit. 128 currently. EKG without concerning ischemic changes. Troponin undetectable. UA w/o signs of infection. CT of the abdomen/pelvis was obtained and showing findings consistent with acute pancreatitis. Worsening from recent imaging on 11/02. Does show hypodensity in the head of the pancreas which may be localized area of inflammation versus mass. Recommended MRI for further evaluation. Discussed lab and imaging findings with patient. She has required several doses of pain medications throughout the ED stay and still reporting persistent pain and nausea. Will admit for continued pain control, IV hydration. Given 2 L of fluid in the ED. Will start continuous fluids afterwards. NPO. Discussed case with Candy Ponce, MULTIGRAPH OPERATOR hospitalist, accepted patient for admission. Patient in agreement with plan. <Lenka Flores PA-C - Last Filed: 11/08/24 01:01> Medical Records Attestation: I reviewed the patient's medical records. <MIC Nicholson Last Filed: 11/08/24 01:01> Lab Data Attestation: I reviewed the patient's lab results. <Lenka Flores PA-C - Last Filed: 11/08/24 01:01> Result diagrams: 11/07/24 18:51 11/07/24 18:51 <MIC Nicholson Last Filed: 11/08/24 01:01> Labs: Lab Results 11/07/24 11/07/24 Range/Units 18:51 18:52 WBC 8.9 (4.5-10.0) K/mm3 RBC 4.60 (4.2-5.4) M/mm3 Hgb 13.9 (12.0-15.0) g/dL Hct 43.2 (37.0-47.0) % MCV 93.9 (80-100) fl MCH 30.2 (26-34) pg MCHC 32.2 (32-36) g/dl RDW 14.9 H (11.5-14.5) % Plt Count 393 H (150-375) k/mm3 MPV 10.5 H (7.4-10.4) fl Immature Gran % (Auto) 0.3 (0-0.5) % Neut % (Auto) 60.4 (45.5-73.1) % Lymph % (Auto) 26.2 (18.3-44.2) % [place] % (Auto) 5.9 (2.6-8.5) % Eos % (Auto) 6.5 H (0-4.4) % Baso % (Auto) 0.7 (0.2-1.2) % Lymph # (Auto) 2.34 (0.9-3.2) K/mm3 [place] # (Auto) 0.5 (0.1-0.6) K/mm3 Eos # (Auto) 0.6 H (0-0.3) K/mm3 Baso # (Auto) 0.1 (0.0-0.1) K/mm3 Abs Immat Gran (auto) 0.03 (0.00-0.031) K/mm3 Absolute Neuts (auto) 5.4 (1.3-6.7) K/mm3 Absolute Nucleated RBC 0.000 (0.0-0.012) K/mm3 Nucleated RBC % 0.0 (0.0-0.2) % Sodium 140 (137-145) mmol/L Potassium 3.8 (3.4-5.0) mmol/L Chloride 107 (98-107) mmol/L Carbon Dioxide 28 (22-30) mmol/L Anion Gap 5 (4-12) mmol/L BUN 17 (7-17) mg/dL Creatinine 0.67 L (0.7-1.0) mg/dL Estim Creat Clear Calc 96 ml/min Estimated GFR > 60 (59 - ) Glucose 103 (65-110) mg/dL Calcium 9.6 (8.4-10.2) mg/dL Total Bilirubin 0.5 (0.2-1.3) mg/dL AST 22 (14-36) U/L ALT 17 (6-35) U/L Alkaline Phosphatase 111 (38-126) U/L Troponin I < 0.012 (0.000-0.034) ng/mL Total Protein 7.8 (6.3-8.2) g/dL Albumin 3.8 (3.5-5.1) g/dL Lipase 128 (23-300) U/L Urine Color Yellow (Yellow) Urine Appearance Clear (Clear) Urine pH 5.5 (5.0-9.0) Ur Specific [place] 1.039 H (1.001-1.035) Urine Protein Trace (Negative) mg/dL Urine Glucose (UA) Negative (Negative) mg/dL Urine Ketones Negative (Negative) mg/dL Ur Blood (Man) Negative (Negative) Urine Nitrate Negative (Negative) Urine Bilirubin Negative (Negative) Urine Urobilinogen 1.0 (<2.0) mg/dL Leukocyte Esterase Rfl Negative (Negative) MADDIE/UL <Lenka Flores PA-C - Last Filed: 11/08/24 01:01> Lab Results 11/07/24 11/07/24 Range/Units 18:51 18:52 WBC 8.9 (4.5-10.0) K/mm3 RBC 4.60 (4.2-5.4) M/mm3 Hgb 13.9 (12.0-15.0) g/dL Hct 43.2 (37.0-47.0) % MCV 93.9 (80-100) fl MCH 30.2 (26-34) pg MCHC 32.2 (32-36) g/dl RDW 14.9 H (11.5-14.5) % Plt Count 393 H (150-375) k/mm3 MPV 10.5 H (7.4-10.4) fl Immature Gran % (Auto) 0.3 (0-0.5) % Neut % (Auto) 60.4 (45.5-73.1) % Lymph % (Auto) 26.2 (18.3-44.2) % [place] % (Auto) 5.9 (2.6-8.5) % Eos % (Auto) 6.5 H (0-4.4) % Baso % (Auto) 0.7 (0.2-1.2) % Lymph # (Auto) 2.34 (0.9-3.2) K/mm3 [place] # (Auto) 0.5 (0.1-0.6) K/mm3 Eos # (Auto) 0.6 H (0-0.3) K/mm3 Baso # (Auto) 0.1 (0.0-0.1) K/mm3 Abs Immat Gran (auto) 0.03 (0.00-0.031) K/mm3 Absolute Neuts (auto) 5.4 (1.3-6.7) K/mm3 Absolute Nucleated RBC 0.000 (0.0-0.012) K/mm3 Nucleated RBC % 0.0 (0.0-0.2) % Sodium 140 (137-145) mmol/L Potassium 3.8 (3.4-5.0) mmol/L Chloride 107 (98-107) mmol/L Carbon Dioxide 28 (22-30) mmol/L Anion Gap 5 (4-12) mmol/L BUN 17 (7-17) mg/dL Creatinine 0.67 L (0.7-1.0) mg/dL Estim Creat Clear Calc 96 ml/min Estimated GFR > 60 (59 - ) Glucose 103 (65-110) mg/dL Calcium 9.6 (8.4-10.2) mg/dL Total Bilirubin 0.5 (0.2-1.3) mg/dL AST 22 (14-36) U/L ALT 17 (6-35) U/L Alkaline Phosphatase 111 (38-126) U/L Troponin I < 0.012 (0.000-0.034) ng/mL Total Protein 7.8 (6.3-8.2) g/dL Albumin 3.8 (3.5-5.1) g/dL Lipase 128 (23-300) U/L Urine Color Yellow (Yellow) Urine Appearance Clear (Clear) Urine pH 5.5 (5.0-9.0) Ur Specific [place] 1.039 H (1.001-1.035) Urine Protein Trace (Negative) mg/dL Urine Glucose (UA) Negative (Negative) mg/dL Urine Ketones Negative (Negative) mg/dL Ur Blood (Man) Negative (Negative) Urine Nitrate Negative (Negative) Urine Bilirubin Negative (Negative) Urine Urobilinogen 1.0 (<2.0) mg/dL Leukocyte Esterase Rfl Negative (Negative) MADDIE/UL <Carola Millard MD - Last Filed: 11/08/24 03:54> Imaging Data Attestation: I personally reviewed and interpreted this imaging study as follows: <Lenka Flores PA-C - Last Filed: 11/08/24 01:01> Radiologist's impression: STAT RAD CT abd/pelvis: Mild stranding identified surrounding the pancreas, more prominent in comparison to the prior examination, suggesting low-grade pancreatitis. Mild ductal dilation identified measuring up to 5 mm. There is an 8 mm in diameter hypodensity within the pancreatic head, and this could be related to a focal region of inflammation due to pancreatitis, but as indicated on the prior examination, correlate with multiphase MRI of the abdomen to exclude a pancreatic head mass. <MIC Nicholson Last Filed: 11/08/24 01:01> ECG Data EKG #1: Attestation: I personally reviewed and interpreted this ECG as follows: <MIC Nicholson Last Filed: 11/08/24 01:01> ECG completion date: 11/07/24 <MIC Nicholson Last Filed: 11/08/24 01:01> ECG completion time: 20:11 <MIC Nicholson Last Filed: 11/08/24 01:01> normal rate (78), sinus rhythm and no ST changes <MIC Nicholson Last Filed: 11/08/24 01:01> Discharge Plan Discharge Clinical Impression: Pancreatitis Qualifiers: Chronicity: acute Pancreatitis type: unspecified pancreatitis type Acute pancreatitis complication: unspecified Qualified Code(s): K85.90 - Acute pancreatitis without necrosis or infection, unspecified Nausea and vomiting Qualifiers: Vomiting type: unspecified Qualified Code(s): R11.2 - Nausea with vomiting, unspecified <MIC Nicholson Last Filed: 11/08/24 01:01> Patient Disposition: Still a Patient <MIC Nicholson Last Filed: 11/08/24 01:01> Condition: Stable <MIC Nicholson Last Filed: 11/08/24 01:01>
--- NOTE | 2024-11-07 19:38 | ECG_ITS ---
Test Date: 2024-11-07 20:11:44 Measurements Intervals Arthur Rate: 78 P: 46 UT: 181 QRS: -19 QRSD: 86 T: 44 QT: 375 QTc: 430 Interpretive Statements SINUS RHYTHM POOR R-WAVE PROGRESSION BORDERLINE VOLTAGE EVIDENCE OF LVH ABNORMAL ECG Compared to ECG 11/02/2024 12:10:54 NO DIFFERENCE Electronically Signed On 11-08-2024 08:41:00 CDT by Michael Lindsay M.D.
[2024-11-07 19:45] VITALS: BP 124/92; PULSE 81; RESP 10; O2SAT 96
[2024-11-07 20:03] LABS: Troponin I < 0.012 ng/mL (0.000-0.034)
[2024-11-07] MEDS: ONDANSETRON INJ 4 MG/2 ML VIAL IV PUSH ×2 (20:06→23:13)
[2024-11-07] MEDS: MORPHINE SULFATE (*CRX) 4 MG/ML INJ IV PUSH (20:07)
[2024-11-07 20:24] LABS: Add Urine Microscopic? YES; Appearance Urine Clear (Clear); Glucose Urine UA Negative (Negative); Leukocyte Esterase Ur Negative LEU/UL (Negative); Nitrate Urine Negative (Negative); Specific Grav Ur 1.039 (1.001-1.035)
[2024-11-07 20:30] VITALS: BP 124/63; PULSE 87; RESP 14; O2SAT 99
[2024-11-07] MEDS: HYDROmorphone HCL INJ (*CRX) 1 MG/ML SYR 0.5 MG IV PUSH ×2 (20:51→23:06)
[2024-11-08] MEDS: HYDROmorphone HCL INJ (*CRX) 1 MG/ML SYR IV PUSH ×9 (00:15→23:47)
[2024-11-08] MEDS: SODIUM CHLORIDE 0.9% IV 1,000 ML 999 ML IV CONT ×2 (00:18→00:19)
[2024-11-08 01:49] VITALS: BP 152/84; PULSE 80; RESP 18; TEMP 36.6; O2SAT 99
[2024-11-08] MEDS: SODIUM CHLORIDE 0.9% IV 1,000 ML 150 ML IV CONT ×3 (02:02→19:58)
[2024-11-08 02:22] VITALS: BMI 30.5
--- NOTE | 2024-11-08 03:55 | PM.IMHP ---
H&P: HPI History of Present Illness Date/Time: 11/08/24 03:55 Chief Complaint: Abdominal pain Narrative: This is a 53-year-old female patient with a past history of pancreatitis. The patient had been seen in the emergency room on 11/02/2024 with similar symptoms and was discharged to home. The patient now comes back to the emergency room with complaint of diffuse abdominal pain. The patient has a history of alcoholism is see that she has been occasionally drinking some alcohol. She has had these symptoms in the past with episodes of pancreatitis. She has persistent pain, nausea, and vomiting. She denies any fever chills or diarrhea. She denies any blood in her stool or vomit. CT of the abdomen pelvis with contrast which was read as fatty infiltrate of the liver. Probable multiple small hepatic cyst measuring up to 1 cm in size. The common bile duct is dilated, measuring up to 1.6 cm in diameter. Pancreas has mild stranding identified surrounding the pancreas, with more prominent in comparison to the prior examination, suggesting low-grade pancreatitis. No signs of pancreatic necrosis. Mild ductal dilatation identified measuring up to 5 mm. There is 8 mm diameter hypodensity within the pancreatic head this could be related to the focal region of inflammation due to pancreatitis, but as indicated the prior examination correlate with multiphase MRI of the abdomen to exclude a pancreatic head mass. 5 mm in size calcification present within the pancreatic head. The patient was started on normal saline, morphine, Dilaudid, and Zofran. EKG was read as sinus rhythm. The patient is being admitted to observation status in the service of 11/08/2024. Review of Systems Constitutional: Constitutional: Reports as per HPI and Reports no additional constitutional complaints Eyes: Eyes: Reports as per HPI and Reports no additional eye complaints ENT: Reports no additional ear, nose, mouth, and throat complaints and Reports Normal hearing present Cardiovascular: Cardiovascular: Reports no additional cardiovascular complaints Respiratory: Respiratory: Reports as per HPI and Reports no additional respiratory complaints Gastrointestinal: Gastrointestinal: Reports as per HPI and Reports no additional gastrointestinal complaints Genitourinary: Genitourinary: Reports no additional female genitourinary complaints Musculoskeletal: Musculoskeletal: Reports no additional musculoskeletal complaints Integumentary/Breasts: Skin/Breast: Reports system reviewed and no additional complaints, except as docu Neurologic: Reports no additional neurologic complaints and Reports Normal hearing present Psychiatric: Psychiatric: Reports no additional psychiatric complaints and Reports as per HPI Hematologic/Lymphatic: Hematologic/Lymphatic: Reports no additional hematologic/lymphatic complaints Allergic/Immunologic: Allergic/Immunologic: Reports no additional allergic/immunologic complaints [facility] Past Medical History Medical History (Updated 11/08/24 @ 14:31 by Stephan Gil MD) Abdominal pain Fatty liver due to alcoholism Acute on chronic pancreatitis Chronic GERD Alcoholism Hypertension Depression with anxiety History of pancreatitis Surgical History Surgical History History of cholecystectomy Based on postsurgical changes on CT 11/02 (patient was not certain about history) H/O gastric bypass History of hysterectomy Family History Family History Father Leukemia Mother Pancreatic cancer Social History Social History (Updated 11/08/24 @ 04:10 by Candy Ponce APRN) Social History: with 1 child. She is disabled. Code status: Full code Smoking packs per day: 0.5 Smoking cigarettes per day: 10.0 Smoking status: Current every day smoker Tobacco type: cigarettes Alcohol intake: former Drinks per week: 35 Alcohol use details: previously heavy consumption; now 1x/year Substance use: never Substance use type: does not use Lack of Transportation: No Lack of Food: Never True Current Housing: I Have Housing Concerned About Future Housing: No Difficulty Paying Gas/Electric Bills: No Difficulty Paying for Meds: No Currently Unemployed: No Education: High School Diploma/GED Difficulty w/ Childcare or Family Care: No Living arrangements: with family Additional living arrangements comments: Spiritual care concerns: No Meds Home Medications and Allergies Home Medications ?Medication ?Instructions ?Recorded ?Confirmed ?Type albuterol sulfate 90 mcg/actuation 1 inh inhalation Q4-6H PRN 11/08/24 11/08/24 History aerosol inhaler shortness of breath or wheezing amlodipine 5 mg tablet 5 mg PO DAILY 11/08/24 11/08/24 History cyclobenzaprine 10 mg tablet 10 mg PO HS PRN muscle spasm 11/08/24 11/08/24 History gabapentin 800 mg tablet 800 mg PO TID 11/08/24 11/08/24 History hydroxyzine HCl 25 mg tablet 25 mg PO HS PRN itching 11/08/24 11/08/24 History lisinopril 40 mg tablet 40 mg PO DAILY 11/08/24 11/08/24 History melatonin 5 mg tablet 5 mg PO HS 11/08/24 11/08/24 History olanzapine 20 mg tablet 10 mg PO BID 11/08/24 11/08/24 History oxycodone-acetaminophen 7.5 mg-325 1 tablet PO QID PRN back pain 11/08/24 11/08/24 History mg tablet paroxetine HCl 20 mg tablet 20 mg PO DAILY 11/08/24 11/08/24 History varenicline tartrate 1 mg tablet 1 mg PO DAILY 11/08/24 11/08/24 History venlafaxine 75 mg tablet 75 mg PO DAILY 11/08/24 11/08/24 History Allergies Allergy/AdvReac Type Severity Reaction Status Date / Time No Known Allergies Allergy Unknown Verified 11/08/24 02:19 Vital Signs Vital Signs - 24 hr 11/07/24 17:40 11/07/24 18:45 11/07/24 19:00 Temperature 98.0 F Pulse Rate 88 80 78 Respiratory Rate 16 19 13 Blood Pressure 147/80 H 158/85 H 121/86 Pulse Oximetry 100 98 99 Oxygen Delivery Room Air 11/07/24 19:45 11/07/24 20:30 11/08/24 01:49 Temperature 97.8 F Pulse Rate 81 87 80 Respiratory Rate 10 L 14 18 Blood Pressure 124/92 H 124/63 152/84 H Pulse Oximetry 96 99 99 Oxygen Delivery 11/08/24 03:14 Temperature Pulse Rate Respiratory Rate Blood Pressure Pulse Oximetry Oxygen Delivery Room Air Exam Const: General: cooperative, no acute distress, well developed, alert, awake, Physically active, ill appearing, tired appearing, average body habitus and well nourished Nutritional Appearance: average body habitus and well nourished Orientation/consciousness: oriented to person, oriented to place, oriented to time and patient oriented x3 Limitations: no limitations HENMT: Head: normal to inspection, No palpable skull fracture present, normocephalic, atraumatic and abrasion Ears: hearing grossly normal bilaterally and external ears normal Eyes: General: appearance normal, both eyes and all related structures Alignment and Position: alignment normal Periorbital: periorbital findings normal Eyelids: eyelids normal Neck: Neck: normal visual inspection, full ROM, no lymphadenopathy, trachea midline and supple Chest: Chest palpation & inspection: normal inspection of the chest Resp: Effort & Inspection: normal respiratory effort Auscultation: clear to auscultation bilaterally Cardio: Palpation: normal PMI Rate: regular rate Rhythm: regular rhythm Heart sounds: S1 normal heart sound present and S2 normal heart sound present Peripheral pulses: Peripheral pulses 2+ throughout : General: Yes no CVA tenderness Back/Spine/Pelvis: Back: no CVA tenderness Cervical Spine: cervical ROM normal Thoracic/Lumbar Spine: thoracic and lumbar spine normal to inspection Pelvis: no pain with anterior-posterior compression Skin: General skin exam: normal color Lesions: no lesions Rashes: no rashes Trauma: no lacerations or abrasions Wounds: no wounds Hair: normal Nails: normal Neuro: General: oriented to person, oriented to place, oriented to time and patient oriented x3 Cranial nerves: Yes Equal, round and reactive pupils present and Yes Normal hearing present Cognition (Neuro): normal cognition Speech: normal speech Gait exam (Neuro): Normal gait present Motor exam (neuro): 5/5 motor strength present throughout Sensory Exam: normal sensation Extrem: General: normal to inspection Right upper extremity: normal to inspection and shoulder/upper arm Left upper extremity: normal to inspection and shoulder/upper arm Right lower extremity: normal to inspection Left lower extremity: normal to inspection Psych: Appearance: grossly normal Mental Status: mental status grossly normal Speech and movement: Normal speech and movement present Affect: normal affect Attitude: cooperative Thought process: Normal thought process present Thought content: Yes Normal thought content present Insight: Good insight present (Psych) Judgement: Good judgement present (Psych) H&P: Results Labs Labs: Short CBC 11/07/24 Range/Units 18:51 WBC 8.9 (4.5-10.0) K/mm3 Hgb 13.9 (12.0-15.0) g/dL Hct 43.2 (37.0-47.0) % Plt Count 393 H (150-375) k/mm3 BMP 11/07/24 18:51 Sodium 140 Potassium 3.8 Chloride 107 Carbon Dioxide 28 BUN 17 Creatinine 0.67 L Glucose 103 Calcium 9.6 Cardiac Enzymes 11/07/24 Range/Units 18:51 Troponin I < 0.012 (0.000-0.034) ng/mL Liver Function 11/07/24 Range/Units 18:51 Total Bilirubin 0.5 (0.2-1.3) mg/dL AST 22 (14-36) U/L ALT 17 (6-35) U/L Alkaline Phosphatase 111 (38-126) U/L Albumin 3.8 (3.5-5.1) g/dL Urine 11/07/24 Range/Units 18:52 Urine Color Yellow (Yellow) Urine Appearance Clear (Clear) Urine pH 5.5 (5.0-9.0) Ur Specific [place] 1.039 H (1.001-1.035) Urine Protein Trace (Negative) mg/dL Urine Glucose (UA) Negative (Negative) mg/dL Imaging CT scan - abdomen: Radiologist's impression: CT of the abdomen pelvis with contrast which was read as fatty infiltrate of the liver. Probable multiple small hepatic cyst measuring up to 1 cm in size. The common bile duct is dilated, measuring up to 1.6 cm in diameter. Pancreas has mild stranding identified surrounding the pancreas, with more prominent in comparison to the prior examination, suggesting low-grade pancreatitis. No signs of pancreatic necrosis. Mild ductal dilatation identified measuring up to 5 mm. There is 8 mm diameter hypodensity within the pancreatic head this could be related to the focal region of inflammation due to pancreatitis, but as indicated the prior examination correlate with multiphase MRI of the abdomen to exclude a pancreatic head mass. 5 mm in size calcification present within the pancreatic head Assessment and Plan Assessment and plan (1) Pancreatitis: Qualifiers: Acute pancreatitis complication: unspecified Chronicity: acute Pancreatitis type: unspecified pancreatitis type Qualified Code(s): K85.90 - Acute pancreatitis without necrosis or infection, unspecified Code(s): K85.90 - Acute pancreatitis without necrosis or infection, unspecified Status: Acute Assessment and Plan: -CT of the abdomen pelvis with contrast which was read as fatty infiltrate of the liver. Probable multiple small hepatic cyst measuring up to 1 cm in size. The common bile duct is dilated, measuring up to 1.6 cm in diameter. Pancreas has mild stranding identified surrounding the pancreas, with more prominent in comparison to the prior examination, suggesting low-grade pancreatitis. No signs of pancreatic necrosis. Mild ductal dilatation identified measuring up to 5 mm. There is 8 mm diameter hypodensity within the pancreatic head this could be related to the focal region of inflammation due to pancreatitis, but as indicated the prior examination correlate with multiphase MRI of the abdomen to exclude a pancreatic head mass. 5 mm in size calcification present within the pancreatic head -GI consult greatly appreciated. -MRCP and MRI of the abdomen have been ordered for tomorrow. -check triglycerides -lipases previously 420 now it is normal. Check lipase daily. -continue with IV hydration -continue with antinausea medicine -continue bowel rest -continue with pain management. -the patient has a history of alcoholism. The patient stated that she has had episodes of pancreatitis due to drinking. She stated that she has been drinking occasionally and noticed that she has the same symptoms after she drinks alcoholic drinks. (2) Hypertension: Code(s): I10 - Essential (primary) hypertension Status: Acute Assessment and Plan: -the patient is NPO therefore her amlodipine and lisinopril is on hold at this time. -p.r.n. hydralazine. -blood pressure currently 152/84. (3) Depression with anxiety: Code(s): F41.8 - Other specified anxiety disorders Status: Acute Assessment and Plan: -continue with hydroxyzine. -she is NPO therefore her paroxetine, olanzapine and venlafaxine on hold. Quality VTE Prophylaxis VTE prophylaxis: mechanical ordered
[2024-11-08 04:00] VITALS: BP 160/72; PULSE 80; RESP 18; TEMP 36.2; O2SAT 100
[2024-11-08] MEDS: ONDANSETRON INJ 4 MG/2 ML VIAL IV PUSH ×5 (04:20→23:47)
[2024-11-08 06:08] LABS: Hematocrit 44.0 % (37.0-47.0); Hemoglobin 13.2 g/dL (12.0-15.0); Mean Corpuscular HGB Conc 30.0 g/dl (32-36); Mean Corpuscular Hemoglobin 30.6 pg (26-34); Mean Corpuscular Volume 101.9 fl (80-100); Platelet Count Result 313 k/mm3 (150-375); Red Blood Count 4.32 M/mm3 (4.2-5.4); White Blood Count 9.5 K/mm3 (4.5-10.0)
[2024-11-08 06:14] LABS: Lipase 196 U/L (23-300); Triglycerides 109 mg/dL (<150)
[2024-11-08 07:00] VITALS: BP 152/94; PULSE 78; RESP 18; TEMP 36.3; O2SAT 97
--- NOTE | 2024-11-08 08:12 | P.PNIM_ITS ---
Progress Note: A&P Assessment and Plan (1) Pancreatitis: Qualifiers: Acute pancreatitis complication: unspecified Chronicity: acute Pancreatitis type: unspecified pancreatitis type Qualified Code(s): K85.90 - Acute pancreatitis without necrosis or infection, unspecified Code(s): K85.90 - Acute pancreatitis without necrosis or infection, unspecified Status: Acute Assessment and Plan: - has prior history of alcohol abuse. Reports drinking at a wedding 2 weeks ago. Admit BAL negative. - CT A/P with acute interstitial pancreatitis superimposed on chronic pancreatitis. - afebrile, no leukocytosis, LFTs WNL. Triglycerides WNL. Lipase 11/02 420, normal on admission - MRCP ordered by admitting team, but not able to be completed due to patient's claustrophobia . - continue IV fluids. Antiemetics and pain control. - NPO, sips with meds. Advance diet once pain and nausea improving. - GI consulted, appreciate recs (2) Hypertension: Code(s): I10 - Essential (primary) hypertension Status: Acute Assessment and Plan: -BP 152/94 - resume home meds once verified (3) Depression with anxiety: Code(s): F41.8 - Other specified anxiety disorders Status: Acute Assessment and Plan: -resume home meds once verified Subjective Date/time seen: 11/08/24 08:12 Interval history: Patient seen and examined at bedside. Still having moderate pain and nausea. Patient admitted to drinking alcohol 2 weeks ago. Review of Systems Review of Systems: All systems reviewed & are unremarkable except as noted in HPI and below Exam Narrative: General: NAD Eyes: EOMI ENT: neck supple Cardiovascular: Regular rate and rhythm Respiratory: Clear to auscultation, respirations even and unlabored on RA Gastrointestinal: Soft, moderate tenderness in the epigastrum without rebound or guarding Genitourinary: no suprapubic tenderness Musculoskeletal: No edema Skin: warm, dry Neuro: Alert. Psych: Mood appropriate Objective Data Vital Signs Vital Signs: Vital Signs - 24 hr 11/07/24 17:40 11/07/24 18:45 11/07/24 19:00 Temperature 98.0 F Pulse Rate 88 80 78 Respiratory Rate 16 19 13 Blood Pressure 147/80 H 158/85 H 121/86 Pulse Oximetry 100 98 99 Oxygen Delivery Room Air 11/07/24 19:45 11/07/24 20:30 11/08/24 01:49 Temperature 97.8 F Pulse Rate 81 87 80 Respiratory Rate 10 L 14 18 Blood Pressure 124/92 H 124/63 152/84 H Pulse Oximetry 96 99 99 Oxygen Delivery 11/08/24 03:14 11/08/24 04:00 11/08/24 07:00 Temperature 97.2 F L 97.4 F L Pulse Rate 80 78 Respiratory Rate 18 18 Blood Pressure 160/72 H 152/94 H Pulse Oximetry 100 97 Oxygen Delivery Room Air Intake/Output Intake/Output: Intake & Output 11/05/24 11/06/24 11/07/24 11/08/24 23:59 23:59 23:59 23:59 Intake Total 1999 Balance 1999 Meds/Results Medications: Active Medications Generic Name Dose Route Start Last Admin Trade Name Freq PRN Reason Stop Dose Admin Acetaminophen 650 mg 11/08/24 02:33 Acetaminophen 650 Mg Suppository RECTAL Q6H PRN Mild Pain (1-3) or Fever Albuterol 1 puff 11/08/24 03:57 Albuterol Sulfate (*Sp) Aerosol 1 Puff INHALATION Q4-6H PRN Shortness Of Breath Or Wheezing Dextrose 12.5 gm 11/08/24 00:58 Dextrose 50% 25 Gm/50 Ml Syringe IV PUSH PRN PRN Hypoglycemia Protocol Diphenhydramine HCl 25 mg 11/08/24 03:55 Diphenhydramine Hcl Inj 50 Mg/Ml Vial IV PUSH Q4H PRN Itching Glucagon 1 mg 11/08/24 00:58 Glucagon For Inj 1 Mg Vial IM PRN PRN Hypoglycemia Protocol Glucose 15 gm 11/08/24 00:58 Glucose Oral Gel 15 Gm Of Glucse In 37.5 Gm Tube PO PRN PRN Hypoglycemia Protocol Hydralazine HCl 10 mg 11/08/24 03:57 Hydralazine Hcl 20 Mg/Ml Vial IV PUSH Q8H PRN Blood Pressure - High Hydromorphone HCl 1 mg 11/08/24 03:08 11/08/24 04:47 Hydromorphone Hcl Inj (*Crx) 1 Mg/Ml Syr IV PUSH 1 mg Q2H PRN Administration Pain Rated 7-10 Hydroxyzine HCl 25 mg 11/08/24 03:09 Hydroxyzine Hcl 50 Mg/Ml Vial IM Q4H PRN Itching Sodium Chloride 1,000 mls @ 150 mls/hr 11/08/24 01:00 11/08/24 02:02 Normal Saline Iv IV CONT 150 mls/hr .Q6H40M YELENA Administration Dextrose 1,000 mls @ 100 mls/hr 11/08/24 00:58 Dextrose 5% 1,000 Ml IVPB PRN PRN Hypoglycemia Protocol Ketorolac Tromethamine 15 mg 11/08/24 06:21 Ketorolac 15 Mg/Ml Vial (*Bkc) IV PUSH Q6H PRN Pain Rated 4-6 Ondansetron HCl 4 mg 11/08/24 00:58 11/08/24 08:10 Ondansetron Inj 4 Mg/2 Ml Vial IV PUSH 4 mg Q4H PRN Administration Nausea Labs Labs: Laboratory Results - last 24 hr 11/07/24 11/07/24 11/08/24 18:51 18:52 05:55 WBC 8.9 9.5 RBC 4.60 4.32 Hgb 13.9 13.2 Hct 43.2 44.0 MCV 93.9 101.9 H D MCH 30.2 30.6 MCHC 32.2 30.0 L RDW 14.9 H 15.0 H Plt Count 393 H 313 MPV 10.5 H 10.5 H Immature Gran % (Auto) 0.3 Neut % (Auto) 60.4 Lymph % (Auto) 26.2 [place] % (Auto) 5.9 Eos % (Auto) 6.5 H Baso % (Auto) 0.7 Lymph # (Auto) 2.34 [place] # (Auto) 0.5 Eos # (Auto) 0.6 H Baso # (Auto) 0.1 Abs Immat Gran (auto) 0.03 Absolute Neuts (auto) 5.4 Absolute Nucleated RBC 0.000 Nucleated RBC % 0.0 Sodium 140 Potassium 3.8 Chloride 107 Carbon Dioxide 28 Anion Gap 5 BUN 17 Creatinine 0.67 L Estim Creat Clear Calc 96 Estimated GFR > 60 Glucose 103 Calcium 9.6 Total Bilirubin 0.5 AST 22 ALT 17 Alkaline Phosphatase 111 Troponin I < 0.012 Total Protein 7.8 Albumin 3.8 Triglycerides 109 Lipase 128 196 Urine Color Yellow Urine Appearance Clear Urine pH 5.5 Ur Specific [place] 1.039 H Urine Protein Trace Urine Glucose (UA) Negative Urine Ketones Negative Ur Blood (Man) Negative Urine Nitrate Negative Urine Bilirubin Negative Urine Urobilinogen 1.0 Leukocyte Esterase Rfl Negative Ethyl Alcohol < 10 Quality VTE Prophylaxis VTE prophylaxis: mechanical ordered
[2024-11-08] MEDS: diazePAM INJ (*CRX) 10 MG/2 ML SYRINGE 2.5 MG IV PUSH (09:49)
--- NOTE | 2024-11-08 10:42 | PC.NURSE ---
This nurse called [facility] to let her know that patient refused MRCP even after giving valium IV. Pt stated that she found out how claustrophobic she got in the machine. pt tried twice and was not able to go through with procedure.
[2024-11-08 14:00] VITALS: BP 146/81; PULSE 74; RESP 18; TEMP 35.6; O2SAT 98
--- NOTE | 2024-11-08 14:25 | WPDGICN ---
Assessment and Plan Assessment and plan (1) Acute on chronic pancreatitis: Code(s): K85.90 - Acute pancreatitis without necrosis or infection, unspecified; K86.1 - Other chronic pancreatitis Status: Acute Assessment and Plan: this is from alcohol abuse, noted changes in CT scan normal liver enzymes, no need of scope continue iv fluids, diet when pain has improved alcohol cessation is important pain meds as needed no need to repeat lipase again will need follow-up in office then we can discuss if needs of pancreatic enzymes, etc (denies diarrhea) and also if get MRCP (2) Nausea and vomiting: Qualifiers: Vomiting type: unspecified Qualified Code(s): R11.2 - Nausea with vomiting, unspecified Code(s): R11.2 - Nausea with vomiting, unspecified Status: Acute Assessment and Plan: supportive care (3) Alcoholism: Code(s): F10.20 - Alcohol dependence, uncomplicated Status: Acute (4) Fatty liver due to alcoholism: Code(s): K70.0 - Alcoholic fatty liver Status: Acute Assessment and Plan: she can see us in office probably from alcohol use (5) Abdominal pain: Code(s): R10.9 - Unspecified abdominal pain Status: Acute GI Consult Note Consult date/time: 11/08/24 14:25 Reason for consult: acute on chronic pancreatitis HPI: Michelle Rogel is a 53 year old female with a past history of pancreatitis that required hospitalization at least 2 times, last one about 2 years ago. She came initially to the emergency room on 11/02/2024 with pain and was discharged to home. She returned with more severe diffuse abdominal pain. She used to drink heavily but claims that for a while only was drinking socially. She is also had cholecystectomy. Also persistent pain, nausea, and vomiting. CT of the abdomen pelvis with contrast showed fatty infiltrate of the liver, There is mild intrahepatic biliary duct dilatation. There are changes of cholecystectomy. The common duct is dilated to 13 mm, likely not clinically significant given the normal liver function tests. There is a calcification in the head of the pancreas, consistent with chronic pancreatitis. Had elevated lipase, normal liver enzymes, still with pain, better with iv pain meds. normal wbc 9 and hgb 13.2 Review of Systems Constitutional: Constitutional: Denies chills and Denies weakness Eyes: Eyes: Denies blurry vision ENT: Reports Normal hearing present and Denies neck pain Cardiovascular: Cardiovascular: Denies chest pain and Denies dyspnea Respiratory: Respiratory: Denies dyspnea Gastrointestinal: Gastrointestinal: Reports abdominal pain and Reports nausea Genitourinary: Genitourinary: Denies dysuria Musculoskeletal: Musculoskeletal: Denies neck pain Integumentary/Breasts: Skin/Breast: Denies dry skin Neurologic: Reports Normal hearing present and Denies weakness Psychiatric: Psychiatric: Reports anxiety [facility] Past Medical History Medical History (Updated 11/08/24 @ 14:31 by Stephan Gil MD) Abdominal pain Fatty liver due to alcoholism Acute on chronic pancreatitis Chronic GERD Alcoholism Hypertension Depression with anxiety History of pancreatitis Surgical History Surgical History History of cholecystectomy Based on postsurgical changes on CT 11/02 (patient was not certain about history) H/O gastric bypass History of hysterectomy Family History Family History Father Leukemia Mother Pancreatic cancer Social History Social History (Updated 11/08/24 @ 04:10 by Candy Ponce APRN) Social History: with 1 child. She is disabled. Code status: Full code Smoking packs per day: 0.5 Smoking cigarettes per day: 10.0 Smoking status: Current every day smoker Tobacco type: cigarettes Alcohol intake: former Drinks per week: 35 Alcohol use details: previously heavy consumption; now 1x/year Substance use: never Substance use type: does not use Lack of Transportation: No Lack of Food: Never True Current Housing: I Have Housing Concerned About Future Housing: No Difficulty Paying Gas/Electric Bills: No Difficulty Paying for Meds: No Currently Unemployed: No Education: High School Diploma/GED Difficulty w/ Childcare or Family Care: No Living arrangements: with family Additional living arrangements comments: Spiritual care concerns: No Meds Home Medications and Allergies Home Medications ?Medication ?Instructions ?Recorded ?Confirmed ?Type albuterol sulfate 90 mcg/actuation 1 inh inhalation Q4-6H PRN 11/08/24 11/08/24 History aerosol inhaler shortness of breath or wheezing amlodipine 5 mg tablet 5 mg PO DAILY 11/08/24 11/08/24 History cyclobenzaprine 10 mg tablet 10 mg PO HS PRN muscle spasm 11/08/24 11/08/24 History gabapentin 800 mg tablet 800 mg PO TID 11/08/24 11/08/24 History hydroxyzine HCl 25 mg tablet 25 mg PO HS PRN itching 11/08/24 11/08/24 History lisinopril 40 mg tablet 40 mg PO DAILY 11/08/24 11/08/24 History melatonin 5 mg tablet 5 mg PO HS 11/08/24 11/08/24 History olanzapine 20 mg tablet 10 mg PO BID 11/08/24 11/08/24 History oxycodone-acetaminophen 7.5 mg-325 1 tablet PO QID PRN back pain 11/08/24 11/08/24 History mg tablet paroxetine HCl 20 mg tablet 20 mg PO DAILY 11/08/24 11/08/24 History varenicline tartrate 1 mg tablet 1 mg PO DAILY 11/08/24 11/08/24 History venlafaxine 75 mg tablet 75 mg PO DAILY 11/08/24 11/08/24 History Allergies Allergy/AdvReac Type Severity Reaction Status Date / Time No Known Allergies Allergy Unknown Verified 11/08/24 02:19 Vital Signs Vital Signs - 24 hr 11/07/24 17:40 11/07/24 18:45 11/07/24 19:00 Temperature 98.0 F Pulse Rate 88 80 78 Respiratory Rate 16 19 13 Blood Pressure 147/80 H 158/85 H 121/86 Pulse Oximetry 100 98 99 Oxygen Delivery Room Air 11/07/24 19:45 11/07/24 20:30 11/08/24 01:49 Temperature 97.8 F Pulse Rate 81 87 80 Respiratory Rate 10 L 14 18 Blood Pressure 124/92 H 124/63 152/84 H Pulse Oximetry 96 99 99 Oxygen Delivery 11/08/24 03:14 11/08/24 04:00 11/08/24 07:00 Temperature 97.2 F L 97.4 F L Pulse Rate 80 78 Respiratory Rate 18 18 Blood Pressure 160/72 H 152/94 H Pulse Oximetry 100 97 Oxygen Delivery Room Air 11/08/24 14:00 Temperature 96.1 F L Pulse Rate 74 Respiratory Rate 18 Blood Pressure 146/81 H Pulse Oximetry 98 Oxygen Delivery Exam Const: General: comfortable and no acute distress HENMT: Face/Nose/Sinus: Normal nares present Eyes: General: appearance normal, both eyes and all related structures Neck: Neck: supple Resp: Auscultation: clear to auscultation bilaterally Cardio: Rate: regular rate Rhythm: regular rhythm GI: Inspection: non-distended GI Palp: Yes Soft to palpation and Yes Tenderness to palpation present (GI) (diffusely, no rebound) Auscultation: normal bowel sounds Skin: General skin exam: normal color Neuro: Speech: normal speech Extrem: General: normal to inspection Psych: Mental Status: mental status grossly normal Results Labs 11/08/24 05:55 11/07/24 18:51 Labs: Short CBC 11/07/24 11/08/24 Range/Units 18:51 05:55 WBC 8.9 9.5 (4.5-10.0) K/mm3 Hgb 13.9 13.2 (12.0-15.0) g/dL Hct 43.2 44.0 (37.0-47.0) % Plt Count 393 H 313 (150-375) k/mm3 BMP 11/07/24 18:51 Sodium 140 Potassium 3.8 Chloride 107 Carbon Dioxide 28 BUN 17 Creatinine 0.67 L Glucose 103 Calcium 9.6 Cardiac Enzymes 11/07/24 Range/Units 18:51 Troponin I < 0.012 (0.000-0.034) ng/mL Liver Function 11/07/24 Range/Units 18:51 Total Bilirubin 0.5 (0.2-1.3) mg/dL AST 22 (14-36) U/L ALT 17 (6-35) U/L Alkaline Phosphatase 111 (38-126) U/L Albumin 3.8 (3.5-5.1) g/dL Urine 11/07/24 Range/Units 18:52 Urine Color Yellow (Yellow) Urine Appearance Clear (Clear) Urine pH 5.5 (5.0-9.0) Ur Specific [place] 1.039 H (1.001-1.035) Urine Protein Trace (Negative) mg/dL Urine Glucose (UA) Negative (Negative) mg/dL
[2024-11-08] MEDS: GABAPENTIN 400 MG CAPSULE 800 MG PO (17:23)
[2024-11-08 21:51] VITALS: BP 155/83; PULSE 78; RESP 16; TEMP 36.7; O2SAT 98
[2024-11-09] MEDS: SODIUM CHLORIDE 0.9% IV 1,000 ML 150 ML IV CONT (02:24)
[2024-11-09] MEDS: HYDROmorphone HCL INJ (*CRX) 1 MG/ML SYR IV PUSH ×2 (02:42→06:03)
[2024-11-09 06:00] VITALS: BP 155/78; PULSE 70; RESP 14; TEMP 37.1; O2SAT 98
[2024-11-09 06:53] LABS: Hematocrit 41.8 % (37.0-47.0); Hemoglobin 12.0 g/dL (12.0-15.0); Immature Granulocyte Percent A 0.3 % (0-0.5); Lymphocytes Absolute Auto 1.90 K/mm3 (0.9-3.2); Mean Corpuscular HGB Conc 28.7 g/dl (32-36); Mean Corpuscular Hemoglobin 30.0 pg (26-34); Mean Corpuscular Volume 104.5 fl (80-100); Nucleated Red Blood Cells Absolute Auto 0.000 K/mm3 (0.0-0.012); Nucleated Red Blood Cells Perc 0.0 % (0.0-0.2); Platelet Count Result 273 k/mm3 (150-375); Red Blood Count 4.00 M/mm3 (4.2-5.4); White Blood Count 6.3 K/mm3 (4.5-10.0)
[2024-11-09 07:15] LABS: Alanine Aminotransferase 10 U/L (6-35); Albumin Level 2.6 g/dL (3.5-5.1); Alkaline Phosphatase 82 U/L (38-126); Anion Gap 5 mmol/L (4-12); Aspartate Amino Transferase 21 U/L (14-36); Bilirubin,Total 0.7 mg/dL (0.2-1.3); Blood Urea Nitrogen 10 mg/dL (7-17); Calcium 8.6 mg/dL (8.4-10.2); Carbon Dioxide 20 mmol/L (22-30); Chloride 112 mmol/L (98-107); Estimated CRCL calculation 123 ml/min; Estimated Glomerular Filt Rate > 60; Glucose 80 mg/dL (65-110); Potassium 3.9 mmol/L (3.4-5.0); Sodium 137 mmol/L (137-145); Total Protein 5.6 g/dL (6.3-8.2)
[2024-11-09 07:36] LABS: Hypochromasia 1+; Schistocytes None Seen
--- NOTE | 2024-11-09 07:55 | P.PNIM_ITS ---
Progress Note: A&P Assessment and Plan (1) Pancreatitis: Qualifiers: Acute pancreatitis complication: unspecified Chronicity: acute Pancreatitis type: unspecified pancreatitis type Qualified Code(s): K85.90 - Acute pancreatitis without necrosis or infection, unspecified Code(s): K85.90 - Acute pancreatitis without necrosis or infection, unspecified Status: Acute Assessment and Plan: - has prior history of alcohol abuse. Reports drinking at a wedding 2 weeks ago. Admit BAL negative. - CT A/P with acute interstitial pancreatitis superimposed on chronic pancreatitis. - afebrile, no leukocytosis, LFTs WNL. Triglycerides WNL. Lipase 11/02 420, normal on admission - MRCP ordered by admitting team, but not able to be completed due to patient's claustrophobia. Do not feel this is warranted at this time due to normal liver enzymes. - continue IV fluids. Antiemetics and pain control. - GI consulted, recommended to advance diet once pain improved. Follow-up as outpatient. - advance to low fat, soft diet (2) Hypertension: Code(s): I10 - Essential (primary) hypertension Status: Acute Assessment and Plan: -BP 152/94 - resume home meds once verified (3) Depression with anxiety: Code(s): F41.8 - Other specified anxiety disorders Status: Acute Assessment and Plan: - continue home meds (4) History of alcohol abuse: Code(s): F10.11 - Alcohol abuse, in remission Status: Chronic Assessment and Plan: - reports prior history of heavy drinking, was clean for 3 years and then attempted to drink at a wedding which led to pancreatitis - encouraged complete cessation Subjective Date/time seen: 11/09/24 07:55 Interval history: Patient seen and examined at bedside. Pain greatly improved. Requesting to eat. Exam Narrative: General: NAD Eyes: EOMI ENT: neck supple Cardiovascular: Regular rate and rhythm Respiratory: Clear to auscultation, respirations even and unlabored on RA Gastrointestinal: Soft, minimal tenderness in the epigastrum without rebound or guarding Genitourinary: no suprapubic tenderness Musculoskeletal: No edema Skin: warm, dry Neuro: Alert. Psych: Mood appropriate Objective Data Vital Signs Vital Signs: Vital Signs - 24 hr 11/08/24 14:00 11/08/24 20:00 11/08/24 21:51 Temperature 96.1 F L 98.0 F Pulse Rate 74 78 Respiratory Rate 18 16 Blood Pressure 146/81 H 155/83 H Pulse Oximetry 98 98 Oxygen Delivery Room Air 11/09/24 06:00 Temperature 98.7 F Pulse Rate 70 Respiratory Rate 14 Blood Pressure 155/78 H Pulse Oximetry 98 Oxygen Delivery Intake/Output Intake/Output: Intake & Output 11/06/24 11/07/24 11/08/24 11/09/24 23:59 23:59 23:59 23:59 Intake Total 4000 965 Balance 4000 965 Meds/Results Medications: Active Medications Generic Name Dose Route Start Last Admin Trade Name Freq PRN Reason Stop Dose Admin Acetaminophen 650 mg 11/08/24 02:33 Acetaminophen 650 Mg Suppository RECTAL Q6H PRN Mild Pain (1-3) or Fever Albuterol 1 puff 11/08/24 03:57 Albuterol Sulfate (*Sp) Aerosol 1 Puff INHALATION Q4-6H PRN Shortness Of Breath Or Wheezing Amlodipine Besylate 5 mg 11/08/24 15:40 11/08/24 17:23 Amlodipine Besylate 5 Mg Tablet PO 5 mg DAILY YELENA Administration Cyclobenzaprine HCl 10 mg 11/08/24 15:33 Cyclobenzaprine Hcl 10 Mg Tablet PO HS PRN Muscle Spasm Dextrose 12.5 gm 11/08/24 00:58 Dextrose 50% 25 Gm/50 Ml Syringe IV PUSH PRN PRN Hypoglycemia Protocol Diphenhydramine HCl 25 mg 11/08/24 03:55 Diphenhydramine Hcl Inj 50 Mg/Ml Vial IV PUSH Q4H PRN Itching Gabapentin 800 mg 11/08/24 17:00 11/08/24 17:23 Gabapentin 400 Mg Capsule PO 800 mg TID YELENA Administration Glucagon 1 mg 11/08/24 00:58 Glucagon For Inj 1 Mg Vial IM PRN PRN Hypoglycemia Protocol Glucose 15 gm 11/08/24 00:58 Glucose Oral Gel 15 Gm Of Glucse In 37.5 Gm Tube PO PRN PRN Hypoglycemia Protocol Hydralazine HCl 10 mg 11/08/24 03:57 Hydralazine Hcl 20 Mg/Ml Vial IV PUSH Q8H PRN Blood Pressure - High Hydromorphone HCl 1 mg 11/08/24 03:08 11/09/24 06:03 Hydromorphone Hcl Inj (*Crx) 1 Mg/Ml Syr IV PUSH 1 mg Q2H PRN Administration Pain Rated 7-10 Hydroxyzine HCl 25 mg 11/08/24 03:09 Hydroxyzine Hcl 50 Mg/Ml Vial IM Q4H PRN Itching Hydroxyzine HCl 25 mg 11/08/24 15:33 Hydroxyzine Hcl 25 Mg Tablet PO HS PRN Itching Sodium Chloride 1,000 mls @ 150 mls/hr 11/08/24 01:00 11/09/24 02:24 Normal Saline Iv IV CONT 150 mls/hr .Q6H40M YELENA Administration Dextrose 1,000 mls @ 100 mls/hr 11/08/24 00:58 Dextrose 5% 1,000 Ml IVPB PRN PRN Hypoglycemia Protocol Ketorolac Tromethamine 15 mg 11/08/24 06:21 Ketorolac 15 Mg/Ml Vial (*Bkc) IV PUSH Q6H PRN Pain Rated 4-6 Lisinopril 40 mg 11/08/24 15:40 11/08/24 17:23 Lisinopril 20 Mg Tablet PO 40 mg DAILY YELENA Administration Melatonin 5 mg 11/08/24 21:00 11/08/24 20:05 Melatonin 5 Mg Tablet PO Not Given HS YELENA Olanzapine 10 mg 11/08/24 17:00 11/08/24 17:23 Olanzapine 5 Mg Tablet PO 10 mg BID YELENA Administration Ondansetron HCl 4 mg 11/08/24 00:58 11/08/24 23:47 Ondansetron Inj 4 Mg/2 Ml Vial IV PUSH 4 mg Q4H PRN Administration Nausea Oxycodone HCl 2.5 mg 11/08/24 15:47 Oxycodone Hcl (*Crx) 2.5 Mg Tab Ir PO QID PRN back pain Oxycodone/Acetaminophen 1 tablet 11/08/24 15:44 Oxycodone/Acetaminophen (*Crx) 5-325 Mg Tablet PO QID PRN back pain Paroxetine HCl 20 mg 11/08/24 15:40 11/08/24 17:23 Paroxetine 20 Mg Tablet PO 20 mg DAILY YELENA Administration Varenicline 1 mg 11/09/24 09:00 Varenicline 1 Mg Tablet PO DAILY YELENA Venlafaxine HCl 75 mg 11/08/24 15:40 11/08/24 17:25 Venlafaxine Hcl 75 Mg Tablet PO Not Given DAILY [facility] Radiology Results: ITS Impressions Abdomen/Pelvis CT 11/08/24 08:23 IMPRESSION: 1. Acute interstitial pancreatitis superimposed on chronic pancreatitis. 2. Diffuse hepatic steatosis. Labs Labs: Laboratory Results - last 24 hr 11/09/24 06:38 WBC 6.3 RBC 4.00 L Hgb 12.0 Hct 41.8 MCV 104.5 H MCH 30.0 MCHC 28.7 L RDW 14.9 H Plt Count 273 MPV 10.4 Immature Gran % (Auto) 0.3 Neut % (Auto) 56.9 Lymph % (Auto) 30.0 [place] % (Auto) 7.3 Eos % (Auto) 4.7 H Baso % (Auto) 0.8 Lymph # (Auto) 1.90 [place] # (Auto) 0.5 Eos # (Auto) 0.3 Baso # (Auto) 0.1 Abs Immat Gran (auto) 0.02 Absolute Neuts (auto) 3.6 Absolute Nucleated RBC 0.000 Band Neutrophils % Not Reportable Nucleated RBC % 0.0 Platelet Estimate Adequate Hypochromasia 1+ Schistocytes None seen Sodium 137 Potassium 3.9 Chloride 112 H Carbon Dioxide 20 L Anion Gap 5 BUN 10 D Creatinine 0.51 L Estim Creat Clear Calc 123 Estimated GFR > 60 Glucose 80 Calcium 8.6 Total Bilirubin 0.7 AST 21 ALT 10 Alkaline Phosphatase 82 Total Protein 5.6 L Albumin 2.6 L Quality VTE Prophylaxis VTE prophylaxis: mechanical ordered
[2024-11-09] MEDS: VARENICLINE 1 MG TABLET PO (08:28)
[2024-11-09] MEDS: VENLAFAXINE HCL 75 MG TABLET PO (08:28)
[2024-11-09] MEDS: GABAPENTIN 400 MG CAPSULE 800 MG PO ×3 (08:29→16:06)
[2024-11-09] MEDS: oxyCODONE/ACETAMINOPHEN (*CRX) 5-325 MG TABLET 1 TABLET PO ×4 (08:31→21:49)
[2024-11-09] MEDS: SODIUM CHLORIDE 0.9% IV 1,000 ML 100 ML IV CONT ×2 (11:17→12:59)
[2024-11-09] MEDS: oxyCODONE HCL (*CRX) 2.5 MG TAB IR PO ×3 (11:28→21:49)
[2024-11-09 14:00] VITALS: BP 152/84; PULSE 78; RESP 18; TEMP 36.4; O2SAT 99
--- NOTE | 2024-11-09 14:58 | WPDGIPROGNO ---
Progress Note: A&P Assessment and Plan (1) Acute on chronic pancreatitis: Code(s): K85.90 - Acute pancreatitis without necrosis or infection, unspecified; K86.1 - Other chronic pancreatitis Status: Acute Assessment and Plan: clinically much better and eating more probably home tomorrow and then she can follow-up in office (2) Nausea and vomiting: Qualifiers: Vomiting type: unspecified Qualified Code(s): R11.2 - Nausea with vomiting, unspecified Code(s): R11.2 - Nausea with vomiting, unspecified Status: Acute Assessment and Plan: resolved (3) Abdominal pain: Code(s): R10.9 - Unspecified abdominal pain Status: Acute (4) Fatty liver due to alcoholism: Code(s): K70.0 - Alcoholic fatty liver Status: Acute (5) History of alcohol abuse: Code(s): F10.11 - Alcohol abuse, in remission Status: Chronic Subjective Date/time seen: 11/09/24 14:58 Interval history: less pain and eating more Review of Systems Review of Systems: All systems reviewed & are unremarkable except as noted in HPI and below Exam Const: General: comfortable and no acute distress HENMT: Face/Nose/Sinus: Normal nares present Eyes: General: appearance normal, both eyes and all related structures Neck: Neck: supple Resp: Auscultation: clear to auscultation bilaterally Cardio: Rate: regular rate Rhythm: regular rhythm GI: Inspection: non-distended GI Palp: Yes Soft to palpation and Yes Tenderness to palpation present (GI) (minimal tenderness- improved) Auscultation: normal bowel sounds Skin: General skin exam: normal color Neuro: Speech: normal speech Extrem: General: normal to inspection Psych: Mental Status: mental status grossly normal Objective Data Vital Signs Vital Signs: Vital Signs - 24 hr 11/08/24 20:00 11/08/24 21:51 11/09/24 06:00 Temperature 98.0 F 98.7 F Pulse Rate 78 70 Respiratory Rate 16 14 Blood Pressure 155/83 H 155/78 H Pulse Oximetry 98 98 Oxygen Delivery Room Air Intake/Output Intake/Output: Intake & Output 11/06/24 11/07/24 11/08/24 11/09/24 23:59 23:59 23:59 23:59 Intake Total 4000 1965 Balance 4000 1964 Meds/Results Medications: Active Medications Generic Name Dose Route Start Last Admin Trade Name Freq PRN Reason Stop Dose Admin Acetaminophen 650 mg 11/08/24 02:33 Acetaminophen 650 Mg Suppository RECTAL Q6H PRN Mild Pain (1-3) or Fever Albuterol 1 puff 11/08/24 03:57 Albuterol Sulfate (*Sp) Aerosol 1 Puff INHALATION Q4-6H PRN Shortness Of Breath Or Wheezing Amlodipine Besylate 5 mg 11/08/24 15:40 11/09/24 08:29 Amlodipine Besylate 5 Mg Tablet PO 5 mg DAILY YELENA Administration Cyclobenzaprine HCl 10 mg 11/08/24 15:33 Cyclobenzaprine Hcl 10 Mg Tablet PO HS PRN Muscle Spasm Dextrose 12.5 gm 11/08/24 00:58 Dextrose 50% 25 Gm/50 Ml Syringe IV PUSH PRN PRN Hypoglycemia Protocol Diphenhydramine HCl 25 mg 11/08/24 03:55 Diphenhydramine Hcl Inj 50 Mg/Ml Vial IV PUSH Q4H PRN Itching Gabapentin 800 mg 11/08/24 17:00 11/09/24 12:33 Gabapentin 400 Mg Capsule PO 800 mg TID YELENA Administration Glucagon 1 mg 11/08/24 00:58 Glucagon For Inj 1 Mg Vial IM PRN PRN Hypoglycemia Protocol Glucose 15 gm 11/08/24 00:58 Glucose Oral Gel 15 Gm Of Glucse In 37.5 Gm Tube PO PRN PRN Hypoglycemia Protocol Hydralazine HCl 10 mg 11/08/24 03:57 Hydralazine Hcl 20 Mg/Ml Vial IV PUSH Q8H PRN Blood Pressure - High Hydromorphone HCl 0.5 mg 11/09/24 10:23 Hydromorphone Hcl Inj (*Crx) 1 Mg/Ml Syr IV PUSH Q4H PRN Pain Rated 7-10 Hydroxyzine HCl 25 mg 11/08/24 03:09 Hydroxyzine Hcl 50 Mg/Ml Vial IM Q4H PRN Itching Hydroxyzine HCl 25 mg 11/08/24 15:33 Hydroxyzine Hcl 25 Mg Tablet PO HS PRN Itching Dextrose 1,000 mls @ 100 mls/hr 11/08/24 00:58 Dextrose 5% 1,000 Ml IVPB PRN PRN Hypoglycemia Protocol Sodium Chloride 1,000 mls @ 100 mls/hr 11/09/24 12:35 11/09/24 12:59 Normal Saline Iv IV CONT 11/09/24 22:34 100 mls/hr .Q10H YELENA Administration Ketorolac Tromethamine 15 mg 11/08/24 06:21 Ketorolac 15 Mg/Ml Vial (*Bkc) IV PUSH Q6H PRN Pain Rated 4-6 Lisinopril 40 mg 11/08/24 15:40 11/09/24 08:30 Lisinopril 20 Mg Tablet PO 40 mg DAILY YELENA Administration Melatonin 5 mg 11/08/24 21:00 11/08/24 20:05 Melatonin 5 Mg Tablet PO Not Given HS YELENA Olanzapine 10 mg 11/08/24 17:00 11/09/24 08:29 Olanzapine 5 Mg Tablet PO 10 mg BID YELENA Administration Ondansetron HCl 4 mg 11/08/24 00:58 11/08/24 23:47 Ondansetron Inj 4 Mg/2 Ml Vial IV PUSH 4 mg Q4H PRN Administration Nausea Oxycodone HCl 2.5 mg 11/08/24 15:47 11/09/24 11:28 Oxycodone Hcl (*Crx) 2.5 Mg Tab Ir PO 2.5 mg QID PRN Administration back pain Oxycodone/Acetaminophen 1 tablet 11/08/24 15:44 11/09/24 11:29 Oxycodone/Acetaminophen (*Crx) 5-325 Mg Tablet PO 1 tablet QID PRN Administration back pain Paroxetine HCl 20 mg 11/08/24 15:40 11/09/24 08:29 Paroxetine 20 Mg Tablet PO 20 mg DAILY YELENA Administration Varenicline 1 mg 11/09/24 09:00 11/09/24 08:28 Varenicline 1 Mg Tablet PO 1 mg DAILY YELENA Administration Venlafaxine HCl 75 mg 11/08/24 15:40 11/09/24 08:28 Venlafaxine Hcl 75 Mg Tablet PO 75 mg DAILY YELENA Administration Radiology Results: ITS Impressions Abdomen/Pelvis CT 11/08/24 08:23 IMPRESSION: 1. Acute interstitial pancreatitis superimposed on chronic pancreatitis. 2. Diffuse hepatic steatosis. Labs Labs: Laboratory Results - last 24 hr 11/09/24 06:38 WBC 6.3 RBC 4.00 L Hgb 12.0 Hct 41.8 MCV 104.5 H MCH 30.0 MCHC 28.7 L RDW 14.9 H Plt Count 273 MPV 10.4 Immature Gran % (Auto) 0.3 Neut % (Auto) 56.9 Lymph % (Auto) 30.0 [place] % (Auto) 7.3 Eos % (Auto) 4.7 H Baso % (Auto) 0.8 Lymph # (Auto) 1.90 [place] # (Auto) 0.5 Eos # (Auto) 0.3 Baso # (Auto) 0.1 Abs Immat Gran (auto) 0.02 Absolute Neuts (auto) 3.6 Absolute Nucleated RBC 0.000 Band Neutrophils % Not Reportable Nucleated RBC % 0.0 Platelet Estimate Adequate Hypochromasia 1+ Schistocytes None seen Sodium 137 Potassium 3.9 Chloride 112 H Carbon Dioxide 20 L Anion Gap 5 BUN 10 D Creatinine 0.51 L Estim Creat Clear Calc 123 Estimated GFR > 60 Glucose 80 Calcium 8.6 Total Bilirubin 0.7 AST 21 ALT 10 Alkaline Phosphatase 82 Total Protein 5.6 L Albumin 2.6 L
[2024-11-09 20:00] VITALS: PULSE 68; RESP 14; O2SAT 94
[2024-11-09] MEDS: MELATONIN 5 MG TABLET PO (21:49)
[2024-11-09 22:00] VITALS: BP 106/66; PULSE 68; RESP 14; TEMP 36.4; O2SAT 94
[2024-11-10] MEDS: oxyCODONE HCL (*CRX) 2.5 MG TAB IR PO ×3 (02:42→14:57)
[2024-11-10] MEDS: oxyCODONE/ACETAMINOPHEN (*CRX) 5-325 MG TABLET 1 TABLET PO ×3 (02:43→14:58)
[2024-11-10 06:00] VITALS: BP 150/82; PULSE 68; RESP 16; TEMP 36.4; O2SAT 100
[2024-11-10 06:46] LABS: Hematocrit 37.3 % (37.0-47.0); Hemoglobin 11.8 g/dL (12.0-15.0); Immature Granulocyte Percent A 0.4 % (0-0.5); Lymphocytes Absolute Auto 1.63 K/mm3 (0.9-3.2); Mean Corpuscular HGB Conc 31.6 g/dl (32-36); Mean Corpuscular Hemoglobin 30.3 pg (26-34); Mean Corpuscular Volume 95.6 fl (80-100); Nucleated Red Blood Cells Absolute Auto 0.000 K/mm3 (0.0-0.012); Nucleated Red Blood Cells Perc 0.0 % (0.0-0.2); Platelet Count Result 291 k/mm3 (150-375); Red Blood Count 3.90 M/mm3 (4.2-5.4); White Blood Count 5.2 K/mm3 (4.5-10.0)
[2024-11-10 06:54] LABS: Alanine Aminotransferase 11 U/L (6-35); Albumin Level 2.6 g/dL (3.5-5.1); Alkaline Phosphatase 82 U/L (38-126); Anion Gap 4 mmol/L (4-12); Aspartate Amino Transferase 16 U/L (14-36); Bilirubin,Total 0.2 mg/dL (0.2-1.3); Blood Urea Nitrogen 11 mg/dL (7-17); Calcium 8.5 mg/dL (8.4-10.2); Carbon Dioxide 24 mmol/L (22-30); Chloride 111 mmol/L (98-107); Estimated CRCL calculation 115 ml/min; Estimated Glomerular Filt Rate > 60; Glucose 102 mg/dL (65-110); Potassium 3.5 mmol/L (3.4-5.0); Sodium 139 mmol/L (137-145); Total Protein 5.6 g/dL (6.3-8.2)
[2024-11-10] MEDS: VENLAFAXINE HCL 75 MG TABLET PO (09:03)
[2024-11-10] MEDS: GABAPENTIN 400 MG CAPSULE 800 MG PO ×2 (09:03→12:16)
[2024-11-10] MEDS: VARENICLINE 1 MG TABLET PO (09:03)
[2024-11-10] MEDS: ONDANSETRON INJ 4 MG/2 ML VIAL IV PUSH (09:12)
--- NOTE | 2024-11-10 10:35 | P.DS_ITS ---
DS: Admitting Diagnosis Discharge Date 11/10/24 Admitting Diagnosis - acute pancreatitis DS: Discharge Diagnosis Discharge Diagnosis (1) Pancreatitis: Qualifiers: Acute pancreatitis complication: unspecified Chronicity: acute Pancreatitis type: unspecified pancreatitis type Qualified Code(s): K85.90 - Acute pancreatitis without necrosis or infection, unspecified Code(s): K85.90 - Acute pancreatitis without necrosis or infection, unspecified Status: Acute (2) Hypertension: Code(s): I10 - Essential (primary) hypertension Status: Acute (3) Depression with anxiety: Code(s): F41.8 - Other specified anxiety disorders Status: Acute (4) History of alcohol abuse: Code(s): F10.11 - Alcohol abuse, in remission Status: Chronic DS: Summary Hospital Course Reason for hospitalization: - acute pancreatitis Hospital Course: Patient is a 53-year-old male with past medical history of alcohol abuse, pancreatitis who presented to the emergency department with complaints of severe epigastric pain. Admit CT showed acute interstitial pancreatitis superimposed on chronic pancreatitis, diffuse hepatic steatosis. Notably, patient's lipase was 420 11/02, but was normal on admission. LFTs WNL. Patient was admitted for management of acute pancreatitis. Patient was made NPO and started on aggressive IV fluid hydration. Patient received IV pain medication and antiemetics with significant improvement in her symptoms. Her diet was advanced to a low-fat soft diet which she tolerated with minimal pain or nausea. Patient did admit to alcohol use prior to admission. She did not exhibit any alcohol withdrawal symptoms while admitted. She was encouraged to abstain from alcohol and to continue a low-fat diet on discharge. She was encouraged to continue her home Percocet for severe pain. She will follow up with GI as an outpatient as well as her PCP within 1 week. Patient was discharged home in stable condition. Time Spent with Patient Time attestation: Total time spent providing and/or coordinating discharge services: Time spent: Greater than 30 minutes Exam Narrative: General: NAD Eyes: EOMI ENT: neck supple Cardiovascular: Regular rate and rhythm Respiratory: Clear to auscultation, respirations even and unlabored on RA Gastrointestinal: Soft, minimal tenderness in the epigastrum without rebound or guarding Genitourinary: no suprapubic tenderness Musculoskeletal: No edema Skin: warm, dry Neuro: Alert. Psych: Mood appropriate DS: Data Data Completed and Pending Completed studies during hospitalization: ITS Impressions Abdomen/Pelvis CT 11/08/24 08:23 IMPRESSION: 1. Acute interstitial pancreatitis superimposed on chronic pancreatitis. 2. Diffuse hepatic steatosis. Labs on day of discharge: Labs from last 24 hours 11/10/24 06:12 WBC 5.2 RBC 3.90 L Hgb 11.8 L Hct 37.3 MCV 95.6 D MCH 30.3 MCHC 31.6 L RDW 14.7 H Plt Count 291 MPV 10.9 H Immature Gran % (Auto) 0.4 Neut % (Auto) 53.2 Lymph % (Auto) 31.4 [place] % (Auto) 7.5 Eos % (Auto) 6.9 H Baso % (Auto) 0.6 Lymph # (Auto) 1.63 [place] # (Auto) 0.4 Eos # (Auto) 0.4 H Baso # (Auto) 0.0 Abs Immat Gran (auto) 0.02 Absolute Neuts (auto) 2.8 Absolute Nucleated RBC 0.000 Nucleated RBC % 0.0 Sodium 139 Potassium 3.5 Chloride 111 H Carbon Dioxide 24 Anion Gap 4 BUN 11 Creatinine 0.55 L Estim Creat Clear Calc 115 Estimated GFR > 60 Glucose 102 Calcium 8.5 Total Bilirubin 0.2 AST 16 ALT 11 Alkaline Phosphatase 82 Total Protein 5.6 L Albumin 2.6 L Discharge Plan Discharge Attending physician on discharge: Enmanuel Vang Consulting providers: Nadya Schaffer; Stephan Gil Discharging Clinician: Nadya Schaffer Anticipated Discharge Date/Time: 11/10/24 10:31 Patient Disposition: Home Activity: as tolerated Diet: low fat and low fiber Discharge Instructions: Take all medications as prescribed. Follow-up with your primary care provider in one week. Continue to utilize Percocet for severe pain. Utilize [id number] Tylenol (acetaminophen) or Motrin for pain and use Percocet for breakthrough pain only. Side effects of Percocet include constipation and drowsiness. Please note that Percocet contains acetaminophen and you should not exceed 4000 mg of acetaminophen daily. Return to the emergency department if you develop chest pain, shortness of breath, persistent fever >100.4, confusion, loss of consciousness. Patient Instructions: Pancreatitis (DC) Patient Language: Sami Stand Alone Forms: General Discharge Information Follow-up/Referrals: Michelle Hernandes, PEDIATRIC CLINICAL DIETICIAN [Primary Care Provider, Unknown] - Call for Appointment Referral Note: 1 week Stephan Gil MD [Physician, Gastroenterology] - Call for Appointment Referral Note: 2-4 weeks Discharge Medications: New ondansetron 4 mg tablet,disintegrating 4 mg PO Q6H PRN (Reason: nausea and vomiting) Qty: 20 0RF Continued oxycodone-acetaminophen 7.5-325 mg tablet 1 tablet PO QID PRN (Reason: back pain) Patient Comments: FOR CHRONIC BACK PAIN albuterol sulfate 90 mcg/actuation HFA aerosol inhaler 1 inh INHALATION Q4-6H PRN (Reason: shortness of breath or wheezing) gabapentin 800 mg tablet 800 mg PO TID lisinopril 40 mg tablet 40 mg PO DAILY melatonin 5 mg tablet 5 mg PO HS olanzapine 20 mg tablet 10 mg PO BID paroxetine HCl 20 mg tablet 20 mg PO DAILY venlafaxine 75 mg tablet 75 mg PO DAILY varenicline tartrate 1 mg tablet 1 mg PO DAILY hydroxyzine HCl 25 mg tablet 25 mg PO HS PRN (Reason: itching) amlodipine 5 mg tablet 5 mg PO DAILY cyclobenzaprine 10 mg tablet 10 mg PO HS PRN (Reason: muscle spasm) Date of admission: 11/08/24 08:27 Primary Care Provider: Michelle Hernandes Admitting Provider: Alie Fernandez Attending physician on admission: Alie Fernandez Condition: Stable Quality VTE Prophylaxis VTE prophylaxis: mechanical ordered
[2024-11-10] MEDS: FAMOTIDINE 20 MG TABLET PO (10:53)
[2024-11-10 14:00] VITALS: BP 137/84; PULSE 78; RESP 18; TEMP 35.7; O2SAT 97
== END 2024-11-10 15:10 | disposition home or self-care (01) | DRG 440 ==
LOC: ANHED 11-08 00:07 → ANH3MEDSUR 11-08 01:24
PROVIDERS: Nurse Practitioner; Physician Assistant; Admitting Provider General Practice; Emergency Provider Physician Assistant; PCP Nurse Practitioner; Visit Provider Internal Medicine
DX: K85.20 Alcohol induced acute pancreatitis without necrosis or infection (principal); K86.0 Alcohol-induced chronic pancreatitis; K70.0 Alcoholic fatty liver; F10.20 Alcohol dependence, uncomplicated; I10 Essential (primary) hypertension; E86.0 Dehydration; K21.9 Gastro-esophageal reflux disease without esophagitis; F41.8 Other specified anxiety disorders; D72.829 Elevated white blood cell count, unspecified; F17.210 Nicotine dependence, cigarettes, uncomplicated; E66.9 Obesity, unspecified; Z68.30 Body mass index [BMI] 30.0-30.9, adult; Z90.49 Acquired absence of other specified parts of digestive tract; Z79.891 Long term (current) use of opiate analgesic; Z80.0 Family history of malignant neoplasm of digestive organs; Z80.6 Family history of leukemia
CPT/HCPCS: 36415; 74177; 80053; 81001; 82077; 83690; 84478; 84484; 85025; 85027; 93005; 96361; 96374; 96375; 96376; 99285; A9270; G0378; J1171; J2270; J2405; J3360; J7030; Q9967

== ENCOUNTER 2024-11-24 05:02 | Inpatient (IN) | payer OTHER, MEDICAID, SELFPAY ==
[2024-11-24] VITALS (8 sets, daily range): BP systolic 151–189; BP diastolic 84–97; PULSE 94–103; RESP 14–20; TEMP 35.9–37.2; O2SAT 94–100
--- NOTE | ~2024-11-24 | CT_ITS ---
EXAMINATION: CT abdomen pelvis w con DATE: 11/24/2024 07:04 INDICATION: Pancreatitis. TECHNIQUE: Computed tomography (CT) of the abdomen and pelvis was performed with 100 mL Omnipaque 350 intravenous contrast. Automated exposure control and iterative reconstruction technique were employed. The dose-length product was 865.11 mGy-cm. COMPARISON: CT abdomen and pelvis 11/07/2024 FINDINGS: The visualized portions of lung bases demonstrates mild atelectasis. No pleural effusion. The heart size is normal. No pericardial effusion. There are bilateral breast implants. There is diffuse hepatic steatosis. There are changes of cholecystectomy. There is moderate intrahepatic biliary duct dilatation. The common duct is dilated to 16 mm, likely not clinically significant given the normal liver function tests. There is a calcification in the head of the pancreas. The pancreatic duct is dilated to 6 mm. There is fat stranding around the pancreas. These findings are consistent with acute on chronic pancreatitis. The spleen, adrenal glands, and right kidney are normal. There is a 6 mm cyst in left kidney. There are no dilated loops of bowel. The appendix is dilated to 12 mm without change. No adjacent fat stranding to suggest appendicitis. There are changes of gastric bypass procedure. There is mild peripancreatic lymphadenopathy, likely reactive. There is no ascites. There is mild lumbar spondylosis. IMPRESSION: 1. Acute interstitial pancreatitis superimposed on chronic pancreatitis. 2. Diffuse hepatic steatosis. Reviewed, dictated and finalized at location E.
[2024-11-24 05:58] LABS: Hematocrit 46.1 % (37.0-47.0); Hemoglobin 14.7 g/dL (12.0-15.0); Immature Granulocyte Percent A 0.2 % (0-0.5); Lymphocytes Absolute Auto 0.94 K/mm3 (0.9-3.2); Mean Corpuscular HGB Conc 31.9 g/dl (32-36); Mean Corpuscular Hemoglobin 29.9 pg (26-34); Mean Corpuscular Volume 93.9 fl (80-100); Nucleated Red Blood Cells Absolute Auto 0.000 K/mm3 (0.0-0.012); Nucleated Red Blood Cells Perc 0.0 % (0.0-0.2); Platelet Count Result 340 k/mm3 (150-375); Red Blood Count 4.91 M/mm3 (4.2-5.4); White Blood Count 12.4 K/mm3 (4.5-10.0)
[2024-11-24 06:19] LABS: Add Urine Microscopic? YES; Appearance Urine Clear (Clear); Glucose Urine UA Negative (Negative); Leukocyte Esterase Ur Negative LEU/UL (Negative); Nitrate Urine Negative (Negative); Non Pathogenic Casts 0-2; Specific Grav Ur 1.031 (1.001-1.035)
[2024-11-24 06:19] LABS: Alanine Aminotransferase 19 U/L (6-35); Albumin Level 3.7 g/dL (3.5-5.1); Alkaline Phosphatase 101 U/L (38-126); Anion Gap 9 mmol/L (4-12); Aspartate Amino Transferase 22 U/L (14-36); Bilirubin,Total 0.9 mg/dL (0.2-1.3); Blood Urea Nitrogen 12 mg/dL (7-17); Calcium 9.5 mg/dL (8.4-10.2); Carbon Dioxide 24 mmol/L (22-30); Chloride 106 mmol/L (98-107); Estimated CRCL calculation 104 ml/min; Estimated Glomerular Filt Rate > 60; Glucose 127 mg/dL (65-110); Lipase 1632 U/L (23-300); Potassium 3.2 mmol/L (3.4-5.0); Sodium 139 mmol/L (137-145); Total Protein 7.4 g/dL (6.3-8.2)
--- NOTE | 2024-11-24 06:30 | ED.ABDPAIN ---
HPI - Abdominal Pain General Chief Complaint: Abdominal Pain Stated Complaint: ABD PAIN, H/O PANCREATITIS Time Seen by Provider: 11/24/24 05:29 Source: patient and RN notes reviewed Mode of arrival: EMS Limitations: no limitations History of Present Illness HPI narrative: Patient presents with report of epigastric and right upper quadrant abdominal pain. She describes a burning sensation towards her back. Patient does not know if she still has her gallbladder. Pain started approximately 1/2 days ago. She notes a history of pancreatitis for which she was recently admitted for although it was her understanding that had been due to Ozempic which has since been discontinued. She has been nauseated and has had 3 episodes of nonbloody emesis. EMS attempted to give 8 mg Zofran in route she immediately vomited this up. She denies marijuana use. She states it has been awhile since she consumed alcohol. She does not know if she has a gallbladder. History of gastric bypass surgery. Related Data Home Medications ?Medication ?Instructions ?Recorded ?Confirmed ?Last Taken ?Type albuterol sulfate 90 mcg/actuation 1 inh inhalation Q4-6H PRN 11/08/24 11/08/24 Unknown History aerosol inhaler shortness of breath or wheezing amlodipine 5 mg tablet 5 mg PO DAILY 11/08/24 11/08/24 Unknown History cyclobenzaprine 10 mg tablet 10 mg PO HS PRN muscle spasm 11/08/24 11/08/24 Unknown History gabapentin 800 mg tablet 800 mg PO TID 11/08/24 11/08/24 Unknown History hydroxyzine HCl 25 mg tablet 25 mg PO HS PRN itching 11/08/24 11/08/24 Unknown History lisinopril 40 mg tablet 40 mg PO DAILY 11/08/24 11/08/24 Unknown History melatonin 5 mg tablet 5 mg PO HS 11/08/24 11/08/24 Unknown History olanzapine 20 mg tablet 10 mg PO BID 11/08/24 11/08/24 Unknown History oxycodone-acetaminophen 7.5 mg-325 1 tablet PO QID PRN back pain 11/08/24 11/08/24 Unknown History mg tablet paroxetine HCl 20 mg tablet 20 mg PO DAILY 11/08/24 11/08/24 Unknown History varenicline tartrate 1 mg tablet 1 mg PO DAILY 11/08/24 11/08/24 Unknown History venlafaxine 75 mg tablet 75 mg PO DAILY 11/08/24 11/08/24 Unknown History Allergies Allergy/AdvReac Type Severity Reaction Status Date / Time No Known Allergies Allergy Unknown Verified 11/08/24 02:19 [facility] Past Medical History Medical History (Updated 11/24/24 @ 07:35 by Josselin Moss MD) Abdominal pain Fatty liver due to alcoholism Acute on chronic pancreatitis Chronic GERD Alcoholism Hypertension Depression with anxiety Surgical History Surgical History History of cholecystectomy Based on postsurgical changes on CT 11/02 (patient was not certain about history) H/O gastric bypass History of hysterectomy Family History Family History Father Leukemia Mother Pancreatic cancer Social History Social History (Updated 11/24/24 @ 07:36 by Josselin Moss MD) Social History: with 1 child. She is disabled. Code status: Full code Smoking packs per day: 0.5 Smoking cigarettes per day: 10.0 Smoking status: Current every day smoker Tobacco type: cigarettes Alcohol intake: former Drinks per week: 35 Alcohol use details: previously heavy consumption; now 1x/year Other substance usage details: denies but marijuana positive on UDS Lack of Transportation: No Lack of Food: Never True Current Housing: I Have Housing Concerned About Future Housing: No Difficulty Paying Gas/Electric Bills: No Difficulty Paying for Meds: No Currently Unemployed: No Education: High School Diploma/GED Difficulty w/ Childcare or Family Care: No Living arrangements: with family Additional living arrangements comments: Spiritual care concerns: No Exam Narrative: GENERAL: well-nourished, and in no acute distress. HEAD: Normocephalic, atraumatic. EYES: Non injected, non icteric ENT: Nares clear, no rhinorrhea or epistaxis. Gross auditory acuity intact. NECK: Supple. No meningismus. CHEST: Speaking in full sentences. No respiratory distress. HEART: Regular rate and rhythm. . ABDOMEN: Soft, nondistended. Tenderness palpation of the epigastrium and right upper quadrant. Fernandes sign equivocal. No rigidity or guarding. Not peritoneal. EXTREMITIES: Normal range of motion. No lower extremity edema. SKIN: Warm, dry, no rash. NEURO: No focal deficits. Alert and oriented. Answering questions. Following commands. Normal speech without aphasia or dysarthria. PSYCH: Congruent mood and affect. Course Vital Signs Vital signs: Vital Signs Pulse Rate 97 11/24/24 05:03 Respiratory Rate 14 11/24/24 05:03 Blood Pressure 189/88 H 11/24/24 05:03 Pulse Oximetry 100 11/24/24 05:03 Oxygen Delivery Room Air 11/24/24 05:03 Temperature 98.8 F 11/24/24 06:33 Pulse Rate 98 11/24/24 06:33 Respiratory Rate 16 11/24/24 06:33 Blood Pressure 154/88 H 11/24/24 06:33 Pulse Oximetry 98 11/24/24 06:33 Oxygen Delivery Room Air 11/24/24 05:03 MDM - Abdominal Pain MDM Narrative Medical decision making narrative: 53-year-old female presents with epigastric and right upper quadrant abdominal pain radiating to her back. She states she was admitted for similar recently and was under the impression that her pancreatitis at that time was secondary to her was a big usage however this medication has since been discontinued. In the emergency department she is afebrile (initially not documented but confirmed) with vital signs that show hypertension. Patient's lipase is greater than 1600 and her pain is classically typical and consistent with pancreatitis. IV fluids, analgesics medication, as well as IV Zofran is ordered (patient had vomited the 8mg ODT she was given en route). She has a leukocytosis. Mild hypokalemia. Normal renal function. Lactic acid normal. Urine with 1+ ketonuria but no signs of infection. Urinalysis is positive for cannabinoids as well as opiates although she denied marijuana use; the urine was collected at almost the same time that the morphine was administered however per review of patient's medication list she is on narcotic therapy. Patient does not know if she still has her gallbladder however per review of the EMR she is status post cholecystectomy (based on CT obtained in October). I did update and educate the patient about her gallbladder status so that she can confidently give a response in the future. She is still having pain when reassessed at 7:05 a.m.. Will order dilaudid especially given she is chronically on opiate therapy and therefore has tolerance. Patient is feeling nauseated still. Given her history of marijuana use, will trial an alternative agent and see if there is better success. Combination of Haldol and diphenhydramine are ordered. CT as below. Patient will require admission for further IV fluid hydration, pain control, nausea control. Patient is informed and verifies understanding, in agreement. Patient discussed with on-call hospitalist Dr Vang. Differential Diagnosis Differential diagnosis: Likely abdominal pain, constipation, diverticulitis, pancreatitis and other (Gastritis, peptic/gastric ulcer disease; cannabinoid hyperemesis) Lab Data Attestation: I reviewed the patient's lab results. 11/24/24 05:41 11/24/24 05:41 Labs: Lab Results 11/24/24 11/24/24 11/24/24 Range/Units 05:41 05:45 05:58 WBC 12.4 H (4.5-10.0) K/mm3 RBC 4.91 (4.2-5.4) M/mm3 Hgb 14.7 (12.0-15.0) g/dL Hct 46.1 (37.0-47.0) % MCV 93.9 (80-100) fl MCH 29.9 (26-34) pg MCHC 31.9 L (32-36) g/dl RDW 14.2 (11.5-14.5) % Plt Count 340 (150-375) k/mm3 MPV 11.2 H (7.4-10.4) fl Immature Gran % (Auto) 0.2 (0-0.5) % Neut % (Auto) 86.5 H (45.5-73.1) % Lymph % (Auto) 7.6 L (18.3-44.2) % [place] % (Auto) 3.7 (2.6-8.5) % Eos % (Auto) 1.7 (0-4.4) % Baso % (Auto) 0.3 (0.2-1.2) % Lymph # (Auto) 0.94 (0.9-3.2) K/mm3 [place] # (Auto) 0.5 (0.1-0.6) K/mm3 Eos # (Auto) 0.2 (0-0.3) K/mm3 Baso # (Auto) 0.0 (0.0-0.1) K/mm3 Abs Immat Gran (auto) 0.03 (0.00-0.031) K/mm3 Absolute Neuts (auto) 10.7 H (1.3-6.7) K/mm3 Absolute Nucleated RBC 0.000 (0.0-0.012) K/mm3 Nucleated RBC % 0.0 (0.0-0.2) % Sodium 139 (137-145) mmol/L Potassium 3.2 L (3.4-5.0) mmol/L Chloride 106 (98-107) mmol/L Carbon Dioxide 24 (22-30) mmol/L Anion Gap 9 (4-12) mmol/L BUN 12 (7-17) mg/dL Creatinine 0.59 L (0.7-1.0) mg/dL Estim Creat Clear Calc 104 ml/min Estimated GFR > 60 (59 - ) Glucose 127 H (65-110) mg/dL Lactic Acid 0.9 (0.7-2.0) mmol/L Calcium 9.5 (8.4-10.2) mg/dL Magnesium 2.0 (1.6-2.3) mg/dL Total Bilirubin 0.9 (0.2-1.3) mg/dL AST 22 (14-36) U/L ALT 19 (6-35) U/L Alkaline Phosphatase 101 (38-126) U/L Total Protein 7.4 (6.3-8.2) g/dL Albumin 3.7 (3.5-5.1) g/dL Lipase 1632 H (23-300) U/L Urine Color Yellow (Yellow) Urine Appearance Clear (Clear) Urine pH 5.0 (5.0-9.0) Ur Specific [place] 1.031 (1.001-1.035) Urine Protein 1+ H (Negative) mg/dL Urine Glucose (UA) Negative (Negative) mg/dL Urine Ketones 1+ H (Negative) mg/dL Ur Blood (Man) Negative (Negative) Urine Nitrate Negative (Negative) Urine Bilirubin Negative (Negative) Urine Urobilinogen 1.0 (<2.0) mg/dL Leukocyte Esterase Rfl Negative (Negative) MADDIE/UL Urine RBC 0-2 (0-2) /hpf Urine WBC 0-5 (0-3) /hpf Ur Squamous Epith Cells Occasional (Few) /hpf Urine Bacteria None seen /hpf Urine Casts 0-2 Urine Opiates Screen Positive A (Negative) Urine Methadone Screen Negative (Negative) Ur Barbiturates Screen Negative (Negative) Ur Phencyclidine Scrn Negative (Negative) Ur Amphetamine Screen Negative (Negative) U Benzodiazepines Scrn Negative (Negative) Urine Cocaine Screen Negative (Negative) U Cannabinoids Screen Positive A (Negative) Ethyl Alcohol < 10 (<10) mg/dL Imaging Data Attestation: I personally reviewed and interpreted this imaging study as follows: My impression: Pancreas appears inflamed on my independent interpretation of CT abdomen pelvis Radiologist's impression: ITS Impressions Abdomen/Pelvis CT 11/24/24 07:12 IMPRESSION: 1. Acute interstitial pancreatitis superimposed on chronic pancreatitis. 2. Diffuse hepatic steatosis. Discharge Plan Discharge Clinical Impression: Acute on chronic pancreatitis, Leukocytosis, Hypokalemia, Hepatic steatosis Patient Disposition: Still a Patient Condition: Stable Instructions: Antibiotic Form Patient Language: Greenlandic Prescriptions: No Action oxycodone-acetaminophen 7.5-325 mg tablet 1 tablet PO QID PRN (Reason: back pain) Patient Comments: FOR CHRONIC BACK PAIN albuterol sulfate 90 mcg/actuation HFA aerosol inhaler 1 inh INHALATION Q4-6H PRN (Reason: shortness of breath or wheezing) gabapentin 800 mg tablet 800 mg PO TID lisinopril 40 mg tablet 40 mg PO DAILY melatonin 5 mg tablet 5 mg PO HS olanzapine 20 mg tablet 10 mg PO BID paroxetine HCl 20 mg tablet 20 mg PO DAILY venlafaxine 75 mg tablet 75 mg PO DAILY varenicline tartrate 1 mg tablet 1 mg PO DAILY hydroxyzine HCl 25 mg tablet 25 mg PO HS PRN (Reason: itching) amlodipine 5 mg tablet 5 mg PO DAILY cyclobenzaprine 10 mg tablet 10 mg PO HS PRN (Reason: muscle spasm) ondansetron 4 mg tablet,disintegrating 4 mg PO Q6H PRN (Reason: nausea and vomiting) Qty: 20 0RF Follow-up/Referrals: Inés,Michelle Peralta APRN [Primary Care Provider, Unknown] Time of Disposition: 07:44
[2024-11-24] MEDS: MORPHINE SULFATE (*CRX) 4 MG/ML INJ IV PUSH (06:37)
[2024-11-24] MEDS: SODIUM CHLORIDE 0.9% IV 1,000 ML 999 ML IV CONT (06:38)
[2024-11-24] MEDS: ONDANSETRON INJ 4 MG/2 ML VIAL IV PUSH ×3 (06:38→21:30)
[2024-11-24 06:51] LABS: Cannabinoid Screen Urine Positive (Negative)
[2024-11-24 06:52] LABS: Magnesium 2.0 mg/dL (1.6-2.3)
[2024-11-24] MEDS: HYDROmorphone HCL INJ (*CRX) 1 MG/ML SYR IV PUSH ×6 (07:14→21:22)
[2024-11-24] MEDS: HALOPERIDOL LACTATE 5 MG/ML VIAL 2.5 MG IV PUSH (07:30)
[2024-11-24] MEDS: FAMOTIDINE 20 MG/2 ML VIAL IV PUSH (07:54)
[2024-11-24] MEDS: SODIUM CHLORIDE 0.9% IV 1,000 ML 250 ML IV CONT ×2 (09:23→14:40)
[2024-11-24] MEDS: PROCHLORPERAZINE EDISYLATE 10 MG/2 ML VIAL IV PUSH (09:24)
--- NOTE | 2024-11-24 10:06 | ADMGEN ---
This patient, Michelle Rogel, was admitted to 3 [facility] Surg Room 325-01. Patient/family oriented to hospital policies and general routines including ID bracelet, bed and alarms, visiting hours, pain management, procedures, bathroom and other care routines, personal items, smoking policy, room service/diet, and visiting hours. Information on how to activate the Rapid Response Team has been discussed. Patient/Family are encouraged to report perceived risks to care and to ask questions if they do not understand what they are told or what they should do. Report from Emergency Room - received from Yasmin
--- NOTE | 2024-11-24 16:10 | PM.IMHP ---
H&P: HPI History of Present Illness Date/Time: 11/24/24 16:10 Chief Complaint: abd pain Narrative: 53 yo female with PMH of HTN and chronic back pain. Patient noted she started having abd pain and vomiting of two days duration. Described as sharp 9/10 radiating to the back. Vomiting about 3 times per day since then. Otherwise denies any chest pain, SOB, diarrhea, dysuria or focal deficits. Er eval notable for Bp 182/91, HR 101, RR 16 saturating 97% on room air Labs notable for WBC 12.4, K 3.2, Lipase 1632, UDs positive for Opiates and Cannabinoids CT AP showed acute interstitial pancreatitis on chronic pancreatitis with diffuse hepatic steatosis Review of Systems Review of Systems: All other systems were reviewed and negative except as noted in the HPI above [facility] Past Medical History Medical History (Updated 11/24/24 @ 07:35 by Josselin Moss MD) Abdominal pain Fatty liver due to alcoholism Acute on chronic pancreatitis Chronic GERD Alcoholism Hypertension Depression with anxiety Surgical History Surgical History History of cholecystectomy Based on postsurgical changes on CT 11/02 (patient was not certain about history) H/O gastric bypass History of hysterectomy Family History Family History Father Leukemia Mother Pancreatic cancer Social History Social History (Updated 11/24/24 @ 07:36 by Josselin Moss MD) Social History: with 1 child. She is disabled. Code status: Full code Smoking packs per day: 1 Smoking cigarettes per day: 20.0 Years smoked: 15 Smoking pack-years: 15.00 Smoking status: Former smoker Tobacco type: cigarettes Second hand tobacco smoke exposure: Yes Smoking end date: 10/25/24 Alcohol intake: former Drinks per week: 35 Alcohol use details: previously heavy consumption; now 1x/year Substance use: former Substance use type: crack/cocaine Other substance usage details: denies but marijuana positive on UDS Last use: 5 yrs ago Lack of Transportation: No Lack of Food: Never True Current Housing: I Have Housing Concerned About Future Housing: No Difficulty Paying Gas/Electric Bills: No Difficulty Paying for Meds: No Currently Unemployed: No Education: High School Diploma/GED Difficulty w/ Childcare or Family Care: No Living arrangements: with family Additional living arrangements comments: Spiritual care concerns: No Meds Home Medications and Allergies Home Medications ?Medication ?Instructions ?Recorded ?Confirmed ?Type albuterol sulfate 90 mcg/actuation 1 inh inhalation Q4-6H PRN 11/08/24 11/24/24 History aerosol inhaler shortness of breath or wheezing amlodipine 5 mg tablet 5 mg PO DAILY 11/08/24 11/24/24 History cyclobenzaprine 10 mg tablet 10 mg PO HS PRN muscle spasm 11/08/24 11/24/24 History gabapentin 800 mg tablet 800 mg PO TID 11/08/24 11/24/24 History hydroxyzine HCl 25 mg tablet 25 mg PO HS PRN itching 11/08/24 11/24/24 History lisinopril 40 mg tablet 40 mg PO DAILY 11/08/24 11/24/24 History melatonin 5 mg tablet 5 mg PO HS 11/08/24 11/24/24 History olanzapine 20 mg tablet 10 mg PO BID 11/08/24 11/24/24 History oxycodone-acetaminophen 7.5 mg-325 1 tablet PO QID PRN back pain 11/08/24 11/24/24 History mg tablet paroxetine HCl 20 mg tablet 20 mg PO DAILY 11/08/24 11/24/24 History varenicline tartrate 1 mg tablet 1 mg PO DAILY 11/08/24 11/24/24 History venlafaxine 75 mg tablet 75 mg PO DAILY 11/08/24 11/24/24 History ondansetron 4 mg disintegrating 4 mg PO Q6H PRN nausea and 11/10/24 11/24/24 Rx tablet vomiting #20 tabs Allergies Allergy/AdvReac Type Severity Reaction Status Date / Time No Known Allergies Allergy Unknown Verified 11/24/24 10:25 Vital Signs Vital Signs - 24 hr 11/24/24 05:03 11/24/24 06:33 11/24/24 07:17 Temperature 98.8 F Pulse Rate 97 98 101 H Respiratory Rate 14 16 16 Blood Pressure 189/88 H 154/88 H 182/91 H Pulse Oximetry 100 98 97 Oxygen Delivery Room Air 11/24/24 07:31 11/24/24 09:01 11/24/24 13:41 Temperature 96.6 F L 98.9 F Pulse Rate 102 H 97 94 Respiratory Rate 17 20 18 Blood Pressure 177/84 H 157/94 H 151/97 H Pulse Oximetry 98 100 94 Oxygen Delivery Exam Narrative: General: alert and comfortable Eyes: EOMI, PERRLA ENNT External ears normal, Neck is supple, no masses, Respiratory systems: Clear to auscultation Cardiovascular S1, S2, normal rhythm, no murmur, rub, or gallop; no thrill or palpable murmurs on palpation. Gastrointestinal: soft, epigastric tenderness, and non-distended abdomen with no masses; BS present Skin: no rash, lesions, ulcerations, subcutaneous nodules or induration Musculoskeletal: no abnormality and no tenderness, normal ROM Neurologic: Alert and oriented x3, non focal Mental Status Exam: normal affect H&P: Results Labs Labs: Short CBC 11/24/24 Range/Units 05:41 WBC 12.4 H (4.5-10.0) K/mm3 Hgb 14.7 (12.0-15.0) g/dL Hct 46.1 (37.0-47.0) % Plt Count 340 (150-375) k/mm3 BMP 11/24/24 05:41 Sodium 139 Potassium 3.2 L Chloride 106 Carbon Dioxide 24 BUN 12 Creatinine 0.59 L Glucose 127 H Calcium 9.5 Liver Function 11/24/24 Range/Units 05:41 Total Bilirubin 0.9 (0.2-1.3) mg/dL AST 22 (14-36) U/L ALT 19 (6-35) U/L Alkaline Phosphatase 101 (38-126) U/L Albumin 3.7 (3.5-5.1) g/dL Urine 11/24/24 Range/Units 05:58 Urine Color Yellow (Yellow) Urine Appearance Clear (Clear) Urine pH 5.0 (5.0-9.0) Ur Specific [place] 1.031 (1.001-1.035) Urine Protein 1+ H (Negative) mg/dL Urine Glucose (UA) Negative (Negative) mg/dL Assessment and Plan Assessment and plan (1) Acute on chronic pancreatitis: Code(s): K85.90 - Acute pancreatitis without necrosis or infection, unspecified; K86.1 - Other chronic pancreatitis Status: Acute Plan Acute on chronic pancreatitis presented with Abd pain and vomiting Lipase elevated and CT AP reviewed NPO except meds, IVF and monitor Patient started she has completely quit alcohol since one month Hypokalemia K 3.2, replaced and monitor HTN restart home meds and adjust with clinical course Chronic back pain continue home meds Tobacco use disorder Patient smokes 1/2 PPD and counseled about smoking cessation DVT prophylaxis on Sq Lovenox Full code SDM: Harley Rogel Hospitalist MIPS Advance Care Plan I have confirmed that the patient's Advanced Care Plan is present, code status is documented, or surrogate decision maker is listed in patient medical record.: Yes Medication Reconciliation I have utilized all available resources to obtain, update and review the patients current medications (includes all prescriptions, OTC, herbals, cannabis, and nutritional supplements).: Yes
[2024-11-24] MEDS: SODIUM CHLORIDE 0.9% IV 1,000 ML 125 ML IV CONT (16:32)
[2024-11-24] MEDS: GABAPENTIN 400 MG CAPSULE 800 MG PO (21:23)
[2024-11-25] MEDS: SODIUM CHLORIDE 0.9% IV 1,000 ML 125 ML IV CONT ×3 (00:04→13:16)
[2024-11-25] MEDS: HYDROmorphone HCL INJ (*CRX) 1 MG/ML SYR IV PUSH ×7 (00:05→21:30)
[2024-11-25] MEDS: MELATONIN 5 MG TABLET PO ×2 (00:06→20:18)
[2024-11-25] MEDS: oxyCODONE/ACETAMINOPHEN (*CRX) 10-325 MG TABLET 1 TAB PO ×4 (02:03→20:18)
[2024-11-25] MEDS: ONDANSETRON INJ 4 MG/2 ML VIAL IV PUSH ×4 (03:09→18:09)
[2024-11-25 06:00] VITALS: BP 152/77; PULSE 77; RESP 18; TEMP 36.7; O2SAT 99
[2024-11-25 08:43] LABS: Hematocrit 38.3 % (37.0-47.0); Hemoglobin 12.0 g/dL (12.0-15.0); Immature Granulocyte Percent A 0.4 % (0-0.5); Lymphocytes Absolute Auto 1.73 K/mm3 (0.9-3.2); Mean Corpuscular HGB Conc 31.3 g/dl (32-36); Mean Corpuscular Hemoglobin 29.8 pg (26-34); Mean Corpuscular Volume 95.0 fl (80-100); Nucleated Red Blood Cells Absolute Auto 0.000 K/mm3 (0.0-0.012); Nucleated Red Blood Cells Perc 0.0 % (0.0-0.2); Platelet Count Result 259 k/mm3 (150-375); Red Blood Count 4.03 M/mm3 (4.2-5.4); White Blood Count 6.8 K/mm3 (4.5-10.0)
[2024-11-25] MEDS: ENOXAPARIN 40 MG/0.4 ML SYRINGE SUB-Q (08:45)
[2024-11-25 09:00] LABS: Alanine Aminotransferase 13 U/L (6-35); Albumin Level 3.0 g/dL (3.5-5.1); Alkaline Phosphatase 82 U/L (38-126); Anion Gap 6 mmol/L (4-12); Aspartate Amino Transferase 16 U/L (14-36); Bilirubin,Total 0.8 mg/dL (0.2-1.3); Blood Urea Nitrogen 6 mg/dL (7-17); Calcium 8.6 mg/dL (8.4-10.2); Carbon Dioxide 23 mmol/L (22-30); Chloride 109 mmol/L (98-107); Estimated CRCL calculation 125 ml/min; Estimated Glomerular Filt Rate > 60; Glucose 85 mg/dL (65-110); Magnesium 1.9 mg/dL (1.6-2.3); Potassium 3.2 mmol/L (3.4-5.0); Sodium 138 mmol/L (137-145); Total Protein 6.4 g/dL (6.3-8.2)
--- NOTE | 2024-11-25 09:27 | PM.IMPN ---
Progress Note: A&P Assessment and Plan (1) Acute on chronic pancreatitis: Code(s): K85.90 - Acute pancreatitis without necrosis or infection, unspecified; K86.1 - Other chronic pancreatitis Status: Acute Plan Acute on chronic pancreatitis presented with Abd pain and vomiting Lipase elevated and CT AP reviewed Started on clear liquid and advanced as tolerated Patient started she has completely quit alcohol since one month Started Ozempic last week Advised to discontinue Ozempic Hypokalemia Replaced and monitor HTN restart home meds and adjust with clinical course Chronic back pain continue home meds Tobacco use disorder Patient smokes 1/2 PPD and counseled about smoking cessation DVT prophylaxis on Sq Lovenox Full code SDM: Harley Gascas Subjective Date/time seen: 11/25/24 09:27 Interval history: Patient reports of quitting alcohol a month ago. Patient has chronic pancreatitis. Patient started on Ozempic about a week ago. Advised not to take Ozempic anymore. Review of Systems Review of Systems: All other systems were reviewed and negative except as noted in the HPI above Exam Narrative: General: alert and comfortable Eyes: EOMI, PERRLA ENNT External ears normal, Neck is supple, no masses, Respiratory systems: Clear to auscultation Cardiovascular S1, S2, normal rhythm, no murmur, rub, or gallop; no thrill or palpable murmurs on palpation. Gastrointestinal: soft, epigastric tenderness, and non-distended abdomen with no masses; BS present Skin: no rash, lesions, ulcerations, subcutaneous nodules or induration Musculoskeletal: no abnormality and no tenderness, normal ROM Neurologic: Alert and oriented x3, non focal Mental Status Exam: normal affect Objective Data Vital Signs Vital Signs: Vital Signs - 24 hr 11/24/24 13:41 11/24/24 20:00 11/24/24 20:33 Temperature 98.9 F Pulse Rate 94 103 H Respiratory Rate 18 20 Blood Pressure 151/97 H Pulse Oximetry 94 95 Oxygen Delivery Room Air Room Air Fraction of Inspired Oxygen 21 11/24/24 21:01 11/25/24 06:00 11/25/24 08:00 Temperature 98.5 F 98.0 F Pulse Rate 98 77 Respiratory Rate 20 18 Blood Pressure 169/91 H 152/77 H Pulse Oximetry 99 99 Oxygen Delivery Room Air Fraction of Inspired Oxygen Intake/Output Intake/Output: Intake & Output 11/22/24 11/23/24 11/24/24 11/25/24 23:59 23:59 23:59 23:59 Intake Total 2466.7 1689.6 Balance 2466.7 1689.6 Meds/Results Medications: Active Medications Generic Name Dose Route Start Last Admin Trade Name Freq PRN Reason Stop Dose Admin Acetaminophen 650 mg 11/24/24 16:27 Acetaminophen 325 Mg Tablet PO Q4H PRN Pain Rated 1-3 Amlodipine Besylate 5 mg 11/25/24 09:00 11/25/24 08:46 Amlodipine Besylate 5 Mg Tablet PO 5 mg DAILY YELENA Administration Cyclobenzaprine HCl 10 mg 11/24/24 16:05 Cyclobenzaprine Hcl 10 Mg Tablet PO HS PRN Muscle Spasm Enoxaparin Sodium 40 mg 11/25/24 09:00 11/25/24 08:45 Enoxaparin 40 Mg/0.4 Ml Syringe SUB-Q 40 mg DAILY YELENA Administration Gabapentin 800 mg 11/24/24 22:00 11/25/24 08:44 Gabapentin 400 Mg Capsule PO Not Given Q8HR YELENA Hydralazine HCl 10 mg 11/24/24 10:42 Hydralazine Hcl 20 Mg/Ml Vial IV PUSH Q8H PRN Blood Pressure - High Hydromorphone HCl 1 mg 11/24/24 08:52 11/25/24 08:58 Hydromorphone Hcl Inj (*Crx) 1 Mg/Ml Syr IV PUSH 1 mg Q3H PRN Administration Pain Rated 7-10 Sodium Chloride 1,000 mls @ 125 mls/hr 11/24/24 07:40 11/25/24 06:03 Normal Saline Iv IV CONT 125 mls/hr .Q8H YELENA Administration Lisinopril 40 mg 11/25/24 09:00 11/25/24 08:46 Lisinopril 20 Mg Tablet PO 40 mg DAILY YELENA Administration Melatonin 5 mg 11/24/24 23:55 11/25/24 00:06 Melatonin 5 Mg Tablet PO 5 mg HS YELENA Administration Ondansetron HCl 4 mg 11/24/24 07:38 11/25/24 08:58 Ondansetron Inj 4 Mg/2 Ml Vial IV PUSH 4 mg Q4H PRN Administration Nausea Oxycodone/Acetaminophen 1 tab 11/24/24 16:26 11/25/24 02:03 Oxycodone/Acetaminophen (*Crx) 10-325 Mg Tablet PO 1 tab Q4H PRN Administration Pain Rated 4-6 Prochlorperazine Edisylate 10 mg 11/24/24 08:50 11/24/24 09:24 Prochlorperazine Edisylate 10 Mg/2 Ml Vial IV PUSH 10 mg Q6H PRN Administration Nausea And Vomiting Radiology Results: ITS Impressions Abdomen/Pelvis CT 11/24/24 07:12 IMPRESSION: 1. Acute interstitial pancreatitis superimposed on chronic pancreatitis. 2. Diffuse hepatic steatosis. Labs Labs: Laboratory Results - last 24 hr 11/25/24 08:35 WBC 6.8 RBC 4.03 L Hgb 12.0 Hct 38.3 MCV 95.0 MCH 29.8 MCHC 31.3 L RDW 14.4 Plt Count 259 MPV 10.5 H Immature Gran % (Auto) 0.4 Neut % (Auto) 60.4 Lymph % (Auto) 25.6 Cataño % (Auto) 8.7 H Eos % (Auto) 4.6 H Baso % (Auto) 0.3 Lymph # (Auto) 1.73 Cataño # (Auto) 0.6 Eos # (Auto) 0.3 Baso # (Auto) 0.0 Abs Immat Gran (auto) 0.03 Absolute Neuts (auto) 4.1 Absolute Nucleated RBC 0.000 Nucleated RBC % 0.0 Sodium 138 Potassium 3.2 L Chloride 109 H Carbon Dioxide 23 Anion Gap 6 BUN 6 L D Creatinine 0.45 L Estim Creat Clear Calc 125 Estimated GFR > 60 Glucose 85 Calcium 8.6 Magnesium 1.9 Total Bilirubin 0.8 AST 16 ALT 13 Alkaline Phosphatase 82 Total Protein 6.4 Albumin 3.0 L Hospitalist MIPS Advance Care Plan I have confirmed that the patient's Advanced Care Plan is present, code status is documented, or surrogate decision maker is listed in patient medical record.: Yes Medication Reconciliation I have utilized all available resources to obtain, update and review the patients current medications (includes all prescriptions, OTC, herbals, cannabis, and nutritional supplements).: Yes
[2024-11-25] MEDS: POTASSIUM CHLORIDE 20 MEQ ER TABLET 40 MEQ PO (09:51)
--- NOTE | 2024-11-25 12:21 | PC.NURSE ---
This nurse took over care of patient at 1200 and agrees with previous nurse shift assessment.
[2024-11-25] MEDS: GABAPENTIN 400 MG CAPSULE 800 MG PO ×2 (13:15→21:30)
[2024-11-25 14:00] VITALS: BP 159/84; PULSE 81; RESP 16; TEMP 35.7; O2SAT 98
[2024-11-25 20:17] VITALS: BP 144/76; PULSE 76; RESP 18; TEMP 36.2; O2SAT 97
[2024-11-26] MEDS: ONDANSETRON INJ 4 MG/2 ML VIAL IV PUSH ×2 (00:34→06:33)
[2024-11-26] MEDS: HYDROmorphone HCL INJ (*CRX) 1 MG/ML SYR IV PUSH ×3 (00:34→06:34)
[2024-11-26] MEDS: SODIUM CHLORIDE 0.9% IV 1,000 ML 125 ML IV CONT ×2 (01:38→08:31)
[2024-11-26] MEDS: oxyCODONE/ACETAMINOPHEN (*CRX) 10-325 MG TABLET 1 TAB PO ×3 (01:39→12:34)
[2024-11-26 05:15] VITALS: BP 160/100; PULSE 89; RESP 17; TEMP 36.1; O2SAT 100
[2024-11-26] MEDS: GABAPENTIN 400 MG CAPSULE 800 MG PO ×2 (06:38→14:12)
[2024-11-26 07:06] LABS: Hematocrit 38.6 % (37.0-47.0); Hemoglobin 12.1 g/dL (12.0-15.0); Mean Corpuscular HGB Conc 31.3 g/dl (32-36); Mean Corpuscular Hemoglobin 30.1 pg (26-34); Mean Corpuscular Volume 96.0 fl (80-100); Platelet Count Result 251 k/mm3 (150-375); Red Blood Count 4.02 M/mm3 (4.2-5.4); White Blood Count 6.6 K/mm3 (4.5-10.0)
[2024-11-26 07:11] LABS: Alanine Aminotransferase 12 U/L (6-35); Albumin Level 3.0 g/dL (3.5-5.1); Alkaline Phosphatase 82 U/L (38-126); Anion Gap 4 mmol/L (4-12); Aspartate Amino Transferase 20 U/L (14-36); Bilirubin,Total 0.7 mg/dL (0.2-1.3); Blood Urea Nitrogen 6 mg/dL (7-17); Calcium 8.7 mg/dL (8.4-10.2); Carbon Dioxide 23 mmol/L (22-30); Chloride 110 mmol/L (98-107); Estimated CRCL calculation 114 ml/min; Estimated Glomerular Filt Rate > 60; Glucose 77 mg/dL (65-110); Potassium 3.4 mmol/L (3.4-5.0); Sodium 137 mmol/L (137-145); Total Protein 6.3 g/dL (6.3-8.2)
[2024-11-26] MEDS: ENOXAPARIN 40 MG/0.4 ML SYRINGE SUB-Q (08:32)
[2024-11-26 14:00] VITALS: BP 181/83; PULSE 79; RESP 16; TEMP 36.1; O2SAT 100
--- NOTE | 2024-11-26 14:04 | P.DS_ITS ---
DS: Admitting Diagnosis Discharge Date 11/26/2024 Admitting Diagnosis Acute on chronic pancreatitis DS: Discharge Diagnosis Discharge Diagnosis (1) Acute on chronic pancreatitis: Code(s): K85.90 - Acute pancreatitis without necrosis or infection, unspecified; K86.1 - Other chronic pancreatitis Status: Acute Plan Acute on chronic pancreatitis presented with Abd pain and vomiting Lipase elevated and CT AP reviewed Started on clear liquid and advanced as tolerated Patient started she has completely quit alcohol since one month Started Ozempic last week Advised to discontinue Ozempic Hypokalemia Replaced and monitor HTN Increase amlodipine to 10mg daily- patient to monitor and follow up with PCP on discharge Chronic back pain continue home meds Tobacco use disorder Patient smokes 1/2 PPD and counseled about smoking cessation DVT prophylaxis on Sq Lovenox Full code SDM: Harley Rogel DS: Summary Hospital Course Hospital Course: Patient is a 53 y/o female with PMH of HTN and chronic back pain. Patient noted she started having abdominal pain and vomiting of two days duration. Described as sharp 9/10 radiating to the back. Vomiting about 3 times per day since then. Otherwise denies any chest pain, SOB, diarrhea, dysuria or focal deficits. Er eval notable for Bp 182/91, HR 101, RR 16 saturating 97% on room air Labs notable for WBC 12.4, K 3.2, Lipase 1632, UDs positive for Opiates and Cannabinoids CT AP showed acute interstitial pancreatitis on chronic pancreatitis with diffuse hepatic steatosis. Patient reports that she recently started Ozempic for weight loss at a private clinic. Given prior history of pancreatitis and alcohol use, this likely was the primary precipitating factor. She has self-discontinued ozempic at this time. Patient was started on IV fluids and made NPO, with pain improving to 2/10 on opioid therapy. She tolerated clear liquids, then solid foods the next morning with no symptoms. Status at Discharge Cognitive/behavioral status at discharge: stable Time Spent with Patient Time attestation: Total time spent providing and/or coordinating discharge services: Exam Narrative: General: alert and comfortable Eyes: EOMI, PERRLA ENNT External ears normal, Neck is supple, no masses, Respiratory systems: Clear to auscultation Cardiovascular S1, S2, normal rhythm, no murmur, rub, or gallop; no thrill or palpable murmurs on palpation. Gastrointestinal: soft, epigastric tenderness, and non-distended abdomen with no masses; BS present Skin: no rash, lesions, ulcerations, subcutaneous nodules or induration Musculoskeletal: no abnormality and no tenderness, normal ROM Neurologic: Alert and oriented x3, non focal Mental Status Exam: normal affect DS: Data Data Completed and Pending Labs on day of discharge: Labs from last 24 hours 11/26/24 05:39 WBC 6.6 RBC 4.02 L Hgb 12.1 Hct 38.6 MCV 96.0 MCH 30.1 MCHC 31.3 L RDW 14.4 Plt Count 251 MPV 11.7 H Sodium 137 Potassium 3.4 Chloride 110 H Carbon Dioxide 23 Anion Gap 4 BUN 6 L Creatinine 0.50 L Estim Creat Clear Calc 114 Estimated GFR > 60 Glucose 77 Calcium 8.7 Total Bilirubin 0.7 AST 20 ALT 12 Alkaline Phosphatase 82 Total Protein 6.3 Albumin 3.0 L Discharge Plan Discharge Attending physician on discharge: Ej Callahan Oca Discharging Clinician: Ej Callahan Oca Patient Disposition: Home Activity: as tolerated Diet: low fat Discharge Instructions: Maintain low fat diet for at least 4 weeks after discharge. Maintain abstinence from alcohol and stop taking ozempic given signficant risk of further episodes of pancreatitis. Patient Instructions: Antibiotic Form Patient Language: Hungarian Stand Alone Forms: General Discharge Information Follow-up/Referrals: In[place],Michelle Peralta, [employer] [Primary Care Provider, Unknown] Discharge Medications: New amlodipine 10 mg tablet 10 mg PO DAILY 30 Days Qty: 30 0RF oxycodone-acetaminophen 10-325 mg Tablet 1 tablet PO 4-8XD PRN (Reason: Pain Rated 4-6) 7 Days Qty: 21 0RF Continued albuterol sulfate 90 mcg/actuation HFA aerosol inhaler 1 inh INHALATION Q4-6H PRN (Reason: shortness of breath or wheezing) gabapentin 800 mg tablet 800 mg PO TID lisinopril 40 mg tablet 40 mg PO DAILY olanzapine 20 mg tablet 10 mg PO BID paroxetine HCl 20 mg tablet 20 mg PO DAILY venlafaxine 75 mg tablet 75 mg PO DAILY varenicline tartrate 1 mg tablet 1 mg PO DAILY cyclobenzaprine 10 mg tablet 10 mg PO HS PRN (Reason: muscle spasm) Discontinued oxycodone-acetaminophen 7.5-325 mg tablet 1 tablet PO QID PRN (Reason: back pain) Patient Comments: FOR CHRONIC BACK PAIN melatonin 5 mg tablet 5 mg PO HS hydroxyzine HCl 25 mg tablet 25 mg PO HS PRN (Reason: itching) amlodipine 5 mg tablet 5 mg PO DAILY ondansetron 4 mg tablet,disintegrating 4 mg PO Q6H PRN (Reason: nausea and vomiting) Qty: 20 0RF Date of admission: 11/25/24 10:41 Primary Care Provider: [place],Michelle Peralta Admitting Provider: Enmanuel Vang Attending physician on admission: Enmanuel Vang Condition: Stable
== END 2024-11-26 15:55 | disposition home or self-care (01) | DRG 440 ==
LOC: ANHED 07:45 → ANH3MEDSUR 07:54
PROVIDERS: General Practice; Admitting Provider Internal Medicine; Emergency Provider Student in an Organized Health Care Education/Training Program; PCP Nurse Practitioner; Visit Provider Student in an Organized Health Care Education/Training Program
DX: K85.30 Drug induced acute pancreatitis without necrosis or infection (principal); K86.1 Other chronic pancreatitis; K70.0 Alcoholic fatty liver; M54.89 Other dorsalgia; E87.6 Hypokalemia; I10 Essential (primary) hypertension; F10.21 Alcohol dependence, in remission; F12.90 Cannabis use, unspecified, uncomplicated; F11.90 Opioid use, unspecified, uncomplicated; F14.91 Cocaine use, unspecified, in remission; T50.995A Adverse effect of other drugs, medicaments and biological substances, initial encounter; K21.9 Gastro-esophageal reflux disease without esophagitis; F32.A Depression, unspecified; F41.9 Anxiety disorder, unspecified; Z87.891 Personal history of nicotine dependence; Z90.49 Acquired absence of other specified parts of digestive tract; Z98.84 Bariatric surgery status
CPT/HCPCS: 36415; 74177; 80053; 80307; 81001; 82077; 83605; 83690; 83735; 85025; 85027; 96361; 96372; 96374; 96375; 96376; 99285; A9270; G0378; J0780; J1171; J1200; J1630; J1650; J2270; J2405; J7030; Q9967